=== PATIENT | male | born 1960 | race Caucasian/White ===

== ENCOUNTER → 2024-08-28 13:09 | Outpatient (REF) | payer OTHER, SELFPAY | LOC: HWRAD 13:09 | PROVIDERS: ATTENDING PHYSICIAN Family Medicine | DX: F17.210 Nicotine dependence, cigarettes, uncomplicated (principal) | CPT/HCPCS: 71271 ==

== ENCOUNTER 2024-12-29 05:18 | Inpatient (IN) | payer OTHER, SELFPAY ==
[2024-12-28 18:56] VITALS: BP 136/86
[2024-12-28 19:15] LABS: % Basophils 0.2 % (0-2); % Eosinophils 0.1 % (0-6); % Immature Granulocytes 0.5 % (0-0.5); % Lymphocytes 2.9 % (20.5-51.1); % Monocytes 3.6 % (1.7-9.3); % Neutrophils 92.7 % (42.2-75.2); Absolute Immature Granulocytes 0.1 10^3/uL (0-0.05); Absolute Lymphocytes 0.5 10^3/uL (1.2-3.4); Absolute Monocytes 0.6 10^3/uL (0.1-0.6); Absolute Neutrophils 15.4 10^3/uL (1.4-6.5); Hematocrit 44.6 % (39.0-52.0); Hemoglobin 15.3 g/dL (13.0-18.0); Mean Corp Hgb Conc. 34.3 g/dL (33.0-37.0); Mean Corpuscular Hgb 29.2 pg (27.0-31.0); Mean Corpuscular Volume 85.1 fL (80.0-94.0); Mean Platelet Volume 9.9 fL (7.4-10.4); Nucleated Red Blood Cells % 0 % (-); Platelet Count 190 10^3/uL (130-400); Red Blood Cell Count 5.24 10^6/uL (4.70-6.10); Red Cell Dist. Width 13.1 % (11.5-14.5); White Blood Cell Count 16.6 10^3/uL (4.8-10.8)
[2024-12-28 19:22] LABS: Lactic Acid 1.5 mmol/L (0.7-2.0)
[2024-12-28 19:29] LABS: ALT (SGPT) 31 U/L (0-50); AST (SGOT) 25 U/L (17-59); Albumin 4.4 g/dl (3.5-5.0); Alkaline Phosphatase 66 U/L (38-126); Blood Urea Nitrogen 15 mg/dl (9-20); Calcium 10.3 mg/dl (8.4-10.2); Carbon Dioxide 26 mmol/L (22-30); Chloride 103 mmol/L (98-107); Glucose 118 mg/dl (70-99); Lipase 44 U/L (23-300); Potassium 4.3 mmol/L (3.5-5.1); Sodium 139 mmol/L (135-145); Total Bilirubin 1.8 mg/dl (0.2-1.3); Total Protein 6.9 g/dl (6.3-8.2); eGFR > 60.00
[2024-12-28 20:56] VITALS: BP 123/83
[2024-12-28 20:57] VITALS: BP 123/83; BMI 19.5
[2024-12-28 21:26] LABS: Urine Albumin 1+ (Neg - Trace); Urine Bilirubin Negative (Negative); Urine Character Clear (Clear); Urine Color Yellow; Urine Glucose Negative (Negative); Urine Ketone 1+ (Negative); Urine Leukocyte Negative (Negative); Urine Nitrite Negative (Negative); Urine Occult Blood 4+ (Negative); Urine Specific Gravity 1.015 (<1.030); Urine Urobilinogen Negative (Neg - 1+)
--- NOTE | 2024-12-28 21:49 | ED.GENMED ---
History of Present Illness
<Mena Ferguson PA-C - Last Filed: 12/30/24 06:13>
General
Chief Complaint: Abdominal Pain
Source: patient
Exam Limitations: none
Time Seen by Provider: 12/28/24 21:25
Nursing documentation reviewed up to this point in time: agreed with
History of Present Illness
History of Present Illness:
pt is a 64 y/o M
h/o diverticulitis, no h/o abscess or surgery
here with lower abd pain that started 2 days ago, was initially LLQ but has moved to include lower abd and right lower abd
chills but no fever
dec appetite
10 days ago had 2 days of dark urine, looked like brownish and then red and cleared up after drinking fluids
no h/o kidney stones
no vomiting, diarrhea
lack of appetite today
motrin hours ago
Past History
<Mena Ferguson PA-C - Last Filed: 12/30/24 06:13>
Past History
ED Past Medical History: Other (diverticulitis)
ED Past Surgical History: None
Social History
Tobacco: Smoker
Alcohol: Occasional
Drug: None
Personal: Other ( )
Employment: Employed
Review of Systems
<Mena Ferguson PA-C - Last Filed: 12/30/24 06:13>
Review of Systems
Allergies reviewed?: Yes
All Other Systems: Not applicable
Phy Exam
<Mena Ferguson PA-C - Last Filed: 12/30/24 06:13>
Physical Exam
Physical Exam:
GENERAL: Alert , in no apparent distress
EYE: pupils equal and reactive
NECK: Supple
ENT: o/p clr, mmm.
CARDIAC: Regular rate and rhythm .
LUNGS: Clear breath sounds bilaterally, no acute respiratory distress, no wheezes/rales/rhonchi
ABDOMEN: Soft, moderate left lower quadrant tenderness, mild voluntary guarding, mild right lower quadrant tenderness, no cvat, normal bowel sounds
NEUROLOGICAL: Alert and oriented, no focal neuro deficits
SKIN: Warm and dry, skin intact.
MUSCULOSKELETAL: No edema, well perfused.
PSYCH: Normal and appropriate interaction.
Course
<Mena Ferguson PA-C - Last Filed: 12/30/24 06:13>
Orders/Labs/Results
Orders:
Orders
12/28/24 19:05
Complete Blood Count/With Diff Urgent
Comprehensive Metabolic Panel Urgent
Lactic Acid Urgent
Lipase Urgent
12/28/24 21:09
Urinalysis Reflex To Culture Urgent
Date Specimen was Collected: 12/28/24
Time Specimen was Collected: 21:04
Urine Microscopic Reflex Cult Urgent
12/28/24 21:45
Iohexol [Omnipaque] See Protocol PO NOW STA
12/28/24 21:49
0.9% Sodium Chloride 1000 ml [Nss] 1,000 ml IV BOLUS
HYDROmorphone [Dilaudid] 1 mg IV NOW STA
12/28/24 23:04
HYDROmorphone [Dilaudid] 1 mg IV NOW STA
12/29/24
CT Abd/pel W Iv And Oral Contr Urgent
Reason For Exam: lower abd pain, tender, h/o divertic
12/29/24 01:16
Ketorolac [Toradol] 30 mg IV NOW STA
12/29/24 01:19
0.9% Sodium Chloride 1000 ml [Nss] 1,000 ml IV BOLUS
Piperacillin/Tazo 4.5 Gram [Zosyn] 4.5 gram in 100 ml IV NOW
12/29/24 01:35
Type+Screen Urgent
12/29/24 01:54
ColoRectal Surgery Consult Urgent
Consulting Provider: Husam Bertrand
Was physician already notified: Yes
12/29/24 02:45
ABO2 Urgent
BBK Wristband Number:
Associate notified that ABO2 has been ordered: [id number]
Date: 12/29/24
Time: 01:55
Water Plumber ID: [id number]
12/29/24 02:59
HYDROmorphone [Dilaudid] 1 mg IV NOW STA
12/29/24 03:00
HYDROmorphone [Dilaudid] 1 mg .ROUTE .STK-MED ONE
12/29/24 04:49
0.9% Sodium Chloride 1000 ml [Nss] 1,000 ml IV BOLUS
HYDROmorphone [Dilaudid] 1 mg IV NOW STA
12/29/24 05:06
Admit/Transfer Patient As Directed
Co-Sign Provider:
Level of Care: Inpatient admission
Assign to:: IMU- Intermediate Care
Physician / Group: Hiram
Diagnosis: Acute Perforated Diverticulitis
Reason for Hospitalization: Acute Perforated Diverticulitis
Expected length of stay greater than two midnights?: Yes
ELOS- Estimated Length of Stay in days: 4
I certify the patient meets the requirements for IP care: Yes
Code Status As Directed
Resuscitation Status: Full Code
PRN Pain Medication Management As Directed
May give lesser potent ordered pain med per pt: Yes
preference::
Protocol:: Medication orders for pain may be administered in a
manner that supports deferring to patient preference
when the pt is:
- Requesting an ordered lesser potent pain medication.
Least to most potent pain medications are defined
as: acetaminophen < NSAID < tramadol < opioids
(morphine, oxycodone, hydromorphone).
- Requesting a lesser dose of the same medication IF
ORDERED.
- Requesting a less intrusive route of administration
if both routes are prescribed by the provider (PO <
IV).
12/29/24 Breakfast
NPO
Allow oral meds: Yes
Allow clear liquids: Sips of Clears
Flush (0.9% Sodium Chloride) [Flush (Nss)] See Dose Instructions IV PER PROTOCOL
12/29/24 06:36
0.9% Sodium Chloride 1000 ml [Nss] 1,000 ml IV 125 mls/hr
Acetaminophen [Tylenol] 650 mg PO Q4HPRN PRN
HYDROmorphone [Dilaudid] 0.5 mg IV Q4HPRN PRN
Ondansetron Injectable [Zofran] 4 mg IV Q6HPRN PRN
12/29/24 06:36
Activity As Directed
Activity Level: Ambulate
With Assistance
Bladder Scan As Directed
Follow Bladder Retention/Intermittent Cath Algorithm?: Yes
PRN if no void in __ hours: 6
Frequency: Per Retention Algorithm
If Bladder Scan Result >: 400
then:: Straight cath
I/O [Intake/ Output] As Directed
Frequency: Per unit guidelines
Pneumatic Compression Sleeves As Directed
Type: Knee high
Straight Cath As Directed
Frequency: Per Retention Algorithm
Additional Instructions: straight cath as needed per acute urinary retention algorithm for 24 hrs
Additional Instructions: for bladder scan greater than 400 mL
Vital Signs As Directed
Frequency: Per unit guidelines
Oxygen Therapy [O2 Therapy] [RESP] Routine
Titrate/Wean O2 to maintain O2 sat greater than (%): 94
DX Deep Vein Thrombosis Video Routine
12/29/24 08:00
Piperacillin/Tazo 3.375 Gram [Zosyn] 3.375 gram in 50 ml IV Q6H
12/30/24 03:30
Basic Metabolic Panel IN AM
Abnormal Lab Results
12/28/24 12/28/24
19:05 21:09
WBC 16.6 H 10^3/uL
(4.8-10.8)
Abs Immat Gran (auto) 0.1 H 10^3/uL
(0-0.05)
Absolute Neuts (auto) 15.4 H 10^3/uL
(1.4-6.5)
Absolute Lymphs (auto) 0.5 L 10^3/uL
(1.2-3.4)
Neutrophils % 92.7 H %
(42.2-75.2)
Lymphocytes % 2.9 L %
(20.5-51.1)
Glucose 118 H mg/dl
(70-99)
Calcium 10.3 H mg/dl
(8.4-10.2)
Total Bilirubin 1.8 H mg/dl
(0.2-1.3)
Urine Ketones 1+ A
(Negative)
Ur Occult Blood Reflex 4+ A
(Negative)
Urine RBC >100 A /HPF
(0-2)
Urine Bacteria (Reflex) Few A
(Negative)
Urine Albumin (Reflex) 1+ A
(Neg - Trace)
12/28/24 19:05
12/28/24 19:05
Vital Signs
Initial and Last Documented VS:
Initial Vital Signs
Temp Pulse Resp BP Pulse Ox
36.6 C 97 20 136/86 98
12/28/24 18:56 12/28/24 18:56 12/28/24 18:56 12/28/24 18:56 12/28/24 18:56
Last Documented Vital Signs
Temp Pulse Resp BP Pulse Ox
36.9 C 70 14 116/77 94
12/30/24 02:36 12/30/24 04:00 12/30/24 04:00 12/30/24 04:00 12/30/24 01:36
Harrylt;ANGELA Mcclure Last Filed: 12/29/24 03:01>
Orders/Labs/Results
Orders:
Orders
12/28/24 19:05
Complete Blood Count/With Diff Urgent
Comprehensive Metabolic Panel Urgent
Lactic Acid Urgent
Lipase Urgent
12/28/24 21:09
Urinalysis Reflex To Culture Urgent
Date Specimen was Collected: 12/28/24
Time Specimen was Collected: 21:04
Urine Microscopic Reflex Cult Urgent
12/28/24 21:45
Iohexol [Omnipaque] See Protocol PO NOW STA
12/28/24 21:49
0.9% Sodium Chloride 1000 ml [Nss] 1,000 ml IV BOLUS
HYDROmorphone [Dilaudid] 1 mg IV NOW STA
12/28/24 23:04
HYDROmorphone [Dilaudid] 1 mg IV NOW STA
12/29/24
CT Abd/pel W Iv And Oral Contr Urgent
Reason For Exam: lower abd pain, tender, h/o divertic
12/29/24 01:16
Ketorolac [Toradol] 30 mg IV NOW STA
12/29/24 01:19
0.9% Sodium Chloride 1000 ml [Nss] 1,000 ml IV BOLUS
Piperacillin/Tazo 4.5 Gram [Zosyn] 4.5 gram in 100 ml IV NOW
12/29/24 01:35
Type+Screen Urgent
12/29/24 01:54
ColoRectal Surgery Consult Urgent
Consulting Provider: Husam Bertrand
Was physician already notified: Yes
12/29/24 02:45
ABO2 Urgent
BBK Wristband Number:
Associate notified that ABO2 has been ordered: [id number]
Date: 12/29/24
Time: 01:55
Water Plumber ID: [id number]
12/29/24 02:59
HYDROmorphone [Dilaudid] 1 mg IV NOW STA
12/29/24 03:00
HYDROmorphone [Dilaudid] 1 mg .ROUTE .STK-MED ONE
12/29/24 04:49
0.9% Sodium Chloride 1000 ml [Nss] 1,000 ml IV BOLUS
HYDROmorphone [Dilaudid] 1 mg IV NOW STA
12/29/24 05:06
Admit/Transfer Patient As Directed
Co-Sign Provider:
Level of Care: Inpatient admission
Assign to:: IMU- Intermediate Care
Physician / Group: Hiram
Diagnosis: Acute Perforated Diverticulitis
Reason for Hospitalization: Acute Perforated Diverticulitis
Expected length of stay greater than two midnights?: Yes
ELOS- Estimated Length of Stay in days: 4
I certify the patient meets the requirements for IP care: Yes
Code Status As Directed
Resuscitation Status: Full Code
PRN Pain Medication Management As Directed
May give lesser potent ordered pain med per pt: Yes
preference::
Protocol:: Medication orders for pain may be administered in a
manner that supports deferring to patient preference
when the pt is:
- Requesting an ordered lesser potent pain medication.
Least to most potent pain medications are defined
as: acetaminophen < NSAID < tramadol < opioids
(morphine, oxycodone, hydromorphone).
- Requesting a lesser dose of the same medication IF
ORDERED.
- Requesting a less intrusive route of administration
if both routes are prescribed by the provider (PO <
IV).
12/29/24 Breakfast
NPO
Allow oral meds: Yes
Allow clear liquids: Sips of Clears
Flush (0.9% Sodium Chloride) [Flush (Nss)] See Dose Instructions IV PER PROTOCOL
12/29/24 06:36
0.9% Sodium Chloride 1000 ml [Nss] 1,000 ml IV 125 mls/hr
Acetaminophen [Tylenol] 650 mg PO Q4HPRN PRN
HYDROmorphone [Dilaudid] 0.5 mg IV Q4HPRN PRN
Ondansetron Injectable [Zofran] 4 mg IV Q6HPRN PRN
12/29/24 06:36
Activity As Directed
Activity Level: Ambulate
With Assistance
Bladder Scan As Directed
Follow Bladder Retention/Intermittent Cath Algorithm?: Yes
PRN if no void in __ hours: 6
Frequency: Per Retention Algorithm
If Bladder Scan Result >: 400
then:: Straight cath
I/O [Intake/ Output] As Directed
Frequency: Per unit guidelines
Pneumatic Compression Sleeves As Directed
Type: Knee high
Straight Cath As Directed
Frequency: Per Retention Algorithm
Additional Instructions: straight cath as needed per acute urinary retention algorithm for 24 hrs
Additional Instructions: for bladder scan greater than 400 mL
Vital Signs As Directed
Frequency: Per unit guidelines
Oxygen Therapy [O2 Therapy] [RESP] Routine
Titrate/Wean O2 to maintain O2 sat greater than (%): 94
DX Deep Vein Thrombosis Video Routine
12/29/24 08:00
Piperacillin/Tazo 3.375 Gram [Zosyn] 3.375 gram in 50 ml IV Q6H
12/30/24 03:30
Basic Metabolic Panel IN AM
Abnormal Lab Results
12/28/24 12/28/24
19:05 21:09
WBC 16.6 H 10^3/uL
(4.8-10.8)
Abs Immat Gran (auto) 0.1 H 10^3/uL
(0-0.05)
Absolute Neuts (auto) 15.4 H 10^3/uL
(1.4-6.5)
Absolute Lymphs (auto) 0.5 L 10^3/uL
(1.2-3.4)
Neutrophils % 92.7 H %
(42.2-75.2)
Lymphocytes % 2.9 L %
(20.5-51.1)
Glucose 118 H mg/dl
(70-99)
Calcium 10.3 H mg/dl
(8.4-10.2)
Total Bilirubin 1.8 H mg/dl
(0.2-1.3)
Urine Ketones 1+ A
(Negative)
Ur Occult Blood Reflex 4+ A
(Negative)
Urine RBC >100 A /HPF
(0-2)
Urine Bacteria (Reflex) Few A
(Negative)
Urine Albumin (Reflex) 1+ A
(Neg - Trace)
12/28/24 19:05
12/28/24 19:05
Vital Signs
Initial and Last Documented VS:
Initial Vital Signs
Temp Pulse Resp BP Pulse Ox
36.6 C 97 20 136/86 98
12/28/24 18:56 12/28/24 18:56 12/28/24 18:56 12/28/24 18:56 12/28/24 18:56
Last Documented Vital Signs
Temp Pulse Resp BP Pulse Ox
36.9 C 70 14 116/77 94
12/30/24 02:36 12/30/24 04:00 12/30/24 04:00 12/30/24 04:00 12/30/24 01:36
<Darnell Haile, DO - Last Filed: 12/29/24 05:15>
Orders/Labs/Results
Orders:
Orders
12/28/24 19:05
Complete Blood Count/With Diff Urgent
Comprehensive Metabolic Panel Urgent
Lactic Acid Urgent
Lipase Urgent
12/28/24 21:09
Urinalysis Reflex To Culture Urgent
Date Specimen was Collected: 12/28/24
Time Specimen was Collected: 21:04
Urine Microscopic Reflex Cult Urgent
12/28/24 21:45
Iohexol [Omnipaque] See Protocol PO NOW STA
12/28/24 21:49
0.9% Sodium Chloride 1000 ml [Nss] 1,000 ml IV BOLUS
HYDROmorphone [Dilaudid] 1 mg IV NOW STA
12/28/24 23:04
HYDROmorphone [Dilaudid] 1 mg IV NOW STA
12/29/24
CT Abd/pel W Iv And Oral Contr Urgent
Reason For Exam: lower abd pain, tender, h/o divertic
12/29/24 01:16
Ketorolac [Toradol] 30 mg IV NOW STA
12/29/24 01:19
0.9% Sodium Chloride 1000 ml [Nss] 1,000 ml IV BOLUS
Piperacillin/Tazo 4.5 Gram [Zosyn] 4.5 gram in 100 ml IV NOW
12/29/24 01:35
Type+Screen Urgent
12/29/24 01:54
ColoRectal Surgery Consult Urgent
Consulting Provider: Husam Bertrand
Was physician already notified: Yes
12/29/24 02:45
ABO2 Urgent
BBK Wristband Number:
Associate notified that ABO2 has been ordered: [id number]
Date: 12/29/24
Time: 01:55
Water Plumber ID: [id number]
12/29/24 02:59
HYDROmorphone [Dilaudid] 1 mg IV NOW STA
12/29/24 03:00
HYDROmorphone [Dilaudid] 1 mg .ROUTE .STK-MED ONE
12/29/24 04:49
0.9% Sodium Chloride 1000 ml [Nss] 1,000 ml IV BOLUS
HYDROmorphone [Dilaudid] 1 mg IV NOW STA
12/29/24 05:06
Admit/Transfer Patient As Directed
Co-Sign Provider:
Level of Care: Inpatient admission
Assign to:: IMU- Intermediate Care
Physician / Group: Hiram
Diagnosis: Acute Perforated Diverticulitis
Reason for Hospitalization: Acute Perforated Diverticulitis
Expected length of stay greater than two midnights?: Yes
ELOS- Estimated Length of Stay in days: 4
I certify the patient meets the requirements for IP care: Yes
Code Status As Directed
Resuscitation Status: Full Code
PRN Pain Medication Management As Directed
May give lesser potent ordered pain med per pt: Yes
preference::
Protocol:: Medication orders for pain may be administered in a
manner that supports deferring to patient preference
when the pt is:
- Requesting an ordered lesser potent pain medication.
Least to most potent pain medications are defined
as: acetaminophen < NSAID < tramadol < opioids
(morphine, oxycodone, hydromorphone).
- Requesting a lesser dose of the same medication IF
ORDERED.
- Requesting a less intrusive route of administration
if both routes are prescribed by the provider (PO <
IV).
12/29/24 Breakfast
NPO
Allow oral meds: Yes
Allow clear liquids: Sips of Clears
Flush (0.9% Sodium Chloride) [Flush (Nss)] See Dose Instructions IV PER PROTOCOL
12/29/24 06:36
0.9% Sodium Chloride 1000 ml [Nss] 1,000 ml IV 125 mls/hr
Acetaminophen [Tylenol] 650 mg PO Q4HPRN PRN
HYDROmorphone [Dilaudid] 0.5 mg IV Q4HPRN PRN
Ondansetron Injectable [Zofran] 4 mg IV Q6HPRN PRN
12/29/24 06:36
Activity As Directed
Activity Level: Ambulate
With Assistance
Bladder Scan As Directed
Follow Bladder Retention/Intermittent Cath Algorithm?: Yes
PRN if no void in __ hours: 6
Frequency: Per Retention Algorithm
If Bladder Scan Result >: 400
then:: Straight cath
I/O [Intake/ Output] As Directed
Frequency: Per unit guidelines
Pneumatic Compression Sleeves As Directed
Type: Knee high
Straight Cath As Directed
Frequency: Per Retention Algorithm
Additional Instructions: straight cath as needed per acute urinary retention algorithm for 24 hrs
Additional Instructions: for bladder scan greater than 400 mL
Vital Signs As Directed
Frequency: Per unit guidelines
Oxygen Therapy [O2 Therapy] [RESP] Routine
Titrate/Wean O2 to maintain O2 sat greater than (%): 94
DX Deep Vein Thrombosis Video Routine
12/29/24 08:00
Piperacillin/Tazo 3.375 Gram [Zosyn] 3.375 gram in 50 ml IV Q6H
12/30/24 03:30
Basic Metabolic Panel IN AM
Abnormal Lab Results
12/28/24 12/28/24
19:05 21:09
WBC 16.6 H 10^3/uL
(4.8-10.8)
Abs Immat Gran (auto) 0.1 H 10^3/uL
(0-0.05)
Absolute Neuts (auto) 15.4 H 10^3/uL
(1.4-6.5)
Absolute Lymphs (auto) 0.5 L 10^3/uL
(1.2-3.4)
Neutrophils % 92.7 H %
(42.2-75.2)
Lymphocytes % 2.9 L %
(20.5-51.1)
Glucose 118 H mg/dl
(70-99)
Calcium 10.3 H mg/dl
(8.4-10.2)
Total Bilirubin 1.8 H mg/dl
(0.2-1.3)
Urine Ketones 1+ A
(Negative)
Ur Occult Blood Reflex 4+ A
(Negative)
Urine RBC >100 A /HPF
(0-2)
Urine Bacteria (Reflex) Few A
(Negative)
Urine Albumin (Reflex) 1+ A
(Neg - Trace)
12/28/24 19:05
12/28/24 19:05
Vital Signs
Initial and Last Documented VS:
Initial Vital Signs
Temp Pulse Resp BP Pulse Ox
36.6 C 97 20 136/86 98
12/28/24 18:56 12/28/24 18:56 12/28/24 18:56 12/28/24 18:56 12/28/24 18:56
Last Documented Vital Signs
Temp Pulse Resp BP Pulse Ox
36.9 C 70 14 116/77 94
12/30/24 02:36 12/30/24 04:00 12/30/24 04:00 12/30/24 04:00 12/30/24 01:36
<Mena Ferguson PA-C - Last Filed: 12/30/24 06:13>
MDM/Problems Addressed
Differential Diagnosis Includes:
diverticulitis, abscess, kidney stone, pyelonephritis
MDM/Problems Addressed:
64 y/o M
h/o diverticuliits with abscess (ct guided drainage 2010)
here with lower abd pain, LLQ to RLQ x 2 days, low grade temp, chills
no vomiting, diarrhea ,bloody stool
had some gross painless hematuria 10 days ago lasting 2 days, resolved; no h/o
no rectal pain, pressure
no h/o prostatitis
tender LLQ mostly with some guarding on exam
nontoxic appaering
temp 99.2
wbc 16 with left shift
appreciate UA with microscopic hematuria
ct a/p pending
iv pain meds
if complicated divertic, will admit
if pain not controlled, admit
if pt feels better and uncomplicated, recommend discharge with outpatient F/U regarding hematuria
signed out to Danna MILLER pending ct.
<Darnell Haile DO - Last Filed: 12/29/24 05:15>
*Critical Care Note
Total Time (30-74mins, 75-104mins- exclusive of procedures): 20
<Danna Zimmerman PA-C - Last Filed: 12/29/24 03:01>
Update Note
Update Note:
1:17 AM:
Danna MILLER
Received patient in signout.
On exam, patient is well-appearing in no acute distress but does complain of persistent pain and he states that the Dilaudid has not been helping much. Received call from [facility] radiology notify me that there is moderate amount of free air on CAT
scan concerning for perforated diverticulitis. Will notify colorectal and hospitalist. Zosyn and IV fluids started. ED attending made aware.
ED Attending Note
<Mena Ferguson PA-C - Last Filed: 12/30/24 06:13>
-
Portions of this chart may have been created with voice recognition software.� Occasional wrong word or��sound alike� substitutions may have occurred due to the inherent limitations of voice recognition software.
<Darnell Haile DO - Last Filed: 12/29/24 05:15>
ED Attending Note
Patient seen and examined by attending physician: Yes
I performed the substantive portion of visit, reviewed & personally made and approve the management plan that is documented in note by myself or MELVIN.: Yes
ED Attending Note:
Seen with MELVIN examined independently history of diverticulitis for many years never requiring surgery, few days of pain in his lower abdomen left greater than right fairly severe with hematuria, here is distended has guarding in the left lower
abdomen CT noted labs noted [facility] for hernia repair, saw Dr. Álvarez when he had a small contained abscess treated conservatively
Patient and updated, message sent to colorectal surgery
Clinical suspicion is perforated diverticulitis will require surgical repair urgently this morning
Discharge Plan
Departure
Patient Disposition: Admit
Date of Disposition: 12/29/24
Time of Disposition: 01:38
Admit to: Med/Surg
Presentation/result/management discussed w/ accepting MD/DO: Hospitalist
Patient with high blood pressure during this ER visit?: Yes
Condition: Fair
Discharge Problem:
Perforation of intestine due to diverticulitis of gastrointestinal tract
Interventions
Interventions:
*Risk Screen - Suicide Last Done: 12/28/24 20:57
*General Assessment Last Done: 12/28/24 18:56
*Neglect/Abuse Screening Last Done: 12/28/24 20:57
*ED- Fall Risk Assessment Last Done: 12/28/24 20:57
*ED COVID-19 Vaccine History Last Done: 12/28/24 20:57
*Nursing Disposition Last Done: 12/29/24 18:04
RG-Kdrqzy-Wjjoftkvpt Assessment Last Done: 12/29/24 07:24
Discharge Date and Time
Discharge Date/Time: 12/29/24 18:06
[2024-12-28] MEDS: NSS 1000 IV (21:59)
[2024-12-28] MEDS: OMNIPAQUE 50 ML PO (22:01)
[2024-12-28] MEDS: DILAUDID 1 MG IV ×2 (22:01→23:22)
[2024-12-28 22:19] LABS: Urine Bacteria Few (Negative); Urine Red Blood Cell >100 /HPF (0-2); Urine Squamous Cell 0-2 /LPF (Few); Urine White Cell 0-2 /HPF (0-5)
[2024-12-28 23:23] VITALS: BP 118/81
--- NOTE | 2024-12-28 23:26 | EDRN ---
Patient stating that his pain is coming back informed MERY Conrad taking care of him, meds ordered and given, patient completed his oral contrast
[2024-12-29] VITALS (18 sets, daily range): BP systolic 116–148; BP diastolic 76–94; BMI 19.4
[2024-12-29] MEDS: NSS 1000 IV ×5 (01:34→23:44)
[2024-12-29] MEDS: ZOSYN 100 IV (01:38)
[2024-12-29] MEDS: TORADOL 30 MG IV (01:38)
[2024-12-29] MEDS: DILAUDID 1 MG IV ×5 (03:10→15:15)
--- NOTE | 2024-12-29 03:19 | EDRN ---
Patient asked about more pain meds, patient medicated as ordered, sat bed up some for better comfort, he also asked about ice chips,informed him they don't want him having anything by mouth at this time, call saucedo in reach.
--- NOTE | 2024-12-29 05:08 | HPS.HSE ---
Family Physician
-
Family Physician: Ray Pham
Chief Complaint
-
Abd Pain
History of Present Illness
Patient is a 64y M with PMH significant for diverticular disease who presents to ED complaining of abdominal pain x 2 days. Patient states that he developed abdominal pain on Saturday. Pain was similar to his usual diverticulitis pain. His
symptoms worsened over the past two days and this evening he presented to the ED for further evaluation. He states that prior episodes have never been this severe. No fevers / chills. No N/V/D.
Medical History
Past Medical History
Past Medical History: Reports Other
Additional Past Medical History:
Diverticular Disease
Anxiety / Insomnia
Peripheral Polyneuropathy
Pulmonary Nodules
AAA
Past Surgical History: Reports Other
Additional Past Surgical History:
Lipoma Excision
Left Inguinal Hernia Repair
Percutaneous Drain for Diverticular Abscess (2010)
Social History
Tobacco: Smoker (Current some day smoker. Approx 30 pack years total use.)
Alcohol: None
Drug: None
Family History
Family History: Other (Father: Lung Cancer Mother: Breast Cancer)
Allergies / Home Medications
Allergies reflects when Allergies were last updated in [facility].
Home Medications with original date entered in [facility]
Allergy/Medication List:
Allergies
Allergy/AdvReac Type Severity Reaction Status Date / Time
No Known Allergies Allergy Verified 12/28/24 18:55
Home Medications
Calcium,Magnesium,Zinc 1 tab PO DAILY 09/12/10
lorazepam 1 mg tablet 1 mg PO TID 09/12/10
omega-3 fatty acids-fish oil 340 mg-1,000 mg capsule (Fish Oil) 1 cap PO DAILY 09/12/10
simvastatin 20 mg tablet 40 mg PO DAILY 06/10/20
zaleplon 10 mg capsule 10 mg PO HS PRN sleep 12/29/24
Review of Systems
-
History Source: Patient
A 12 point ROS was completed and negative except as noted: Yes
Constitutional: Denies Fever or Chills
Respiratory: Denies Cough or Trouble Breathing
Cardiac: Denies Chest Pain or Palpitations
Abdomen/GI: Reports Abdominal Pain; Denies Nausea, Vomiting or Diarrhea
: Denies Dysuria or Frequency
Musculoskeletal: Denies Joint Pain or Edema
Neurological: Denies Dizzy or Headache
Physical Exam
Vital Signs
Vital Signs
Temp Pulse Resp BP Pulse Ox
98.2 F 74 20 130/89 99
12/29/24 03:20 12/28/24 20:57 12/28/24 18:56 12/29/24 03:11 12/29/24 03:15
Physical Exam
General: Other (64y M in mild distress due to abdominal pain.)
HEENT: Moist mucous membranes and PERRLA
Respiratory: Clear; No Wheezes, Rales or Rhonchi
Cardiac: S1/S2 and Regular Rhythm; No Murmur
GI: Other (Abdomen is softly distended. Pos tenderness LLQ / lower abdomen. Pos bowel sounds. Pos guarding.)
Musculoskeletal: No Clubbing, No Cyanosis and No Edema
Neuro: AO x 3
Laboratory Results
-
12/28/24 19:05
12/28/24 19:05
Laboratory Results
Lactic Acid 1.5 mmol/L (0.7-2.0) 12/28/24 19:05
Total Bilirubin 1.8 mg/dl (0.2-1.3) H 12/28/24 19:05
AST 25 U/L (17-59) 12/28/24 19:05
ALT 31 U/L (0-50) 12/28/24 19:05
Alkaline Phosphatase 66 U/L (38-126) 12/28/24 19:05
Lipase 44 U/L (23-300) 12/28/24 19:05
Impression/Plan
-
A/P: Patient is a 64y M with PMH significant for diverticular disease who presents to ED complaining of abdominal pain.
Acute Perforated Diverticulitis
- Admit for further evaluation and treatment.
- CT scan shows free air in the abdomen - most likely from perf diverticulitis given history, LLQ pain, etc.
- IV Zosyn.
- IVFs, pain control, supportive care.
- Colorectal Surgery notified and will be in to see patient - will likely require urgent OR for perforated viscus.
- Follow for clinical changes.
DVT Prophylaxis: SCDs
Code Status: Full
--- NOTE | 2024-12-29 05:10 | EDRN ---
Patient asking about pain medicine, he was medicated per order, Dr. Gandhi also in to see patient to work on admission orders.
[2024-12-29] MEDS: DILAUDID 0.5 MG IV (07:17)
[2024-12-29] MEDS: ZOSYN 50 IV ×2 (08:03→15:58)
[2024-12-29 09:23] LABS: PT 17.4 Sec (11.4-14.6)
[2024-12-29 09:24] LABS: APTT 32.5 Sec (23.4-35.0)
--- NOTE | 2024-12-29 10:33 | CON.CRS ---
Consultation
-
Date/Time Consultation Performed: 12/29/24 6:00am
Performing Provider: Husam Bertrand MD
Medical History
-
History of Present Illness:
Patient is a 64-year-old male with PMH of HLD, AAA (currently under evaluation by vascular), and recurrent diverticulitis (first episode in 2010 requiring IR drain; since then 3 flares requiring p.o. antibiotics without hospitalization) who presents
for significant abdominal pain for the last 3 days. The pain seemed more significant on the right side this time and his diverticular pain is usually on the left. However he does have pain diffusely. He denies any N/V, chest pain, shortness of
breath, constipation, diarrhea, hematochezia or urinary symptoms. He does note some fevers/chills. In the ED, his WBC was 16.[address] scan showed moderate pneumoperitoneum associated with diverticulitis. His last colonoscopy was 10/2022, which
showed diverticulosis in the transverse colon TA.
Past Medical History
Past Medical History: Other (As above)
Past Surgical History: Other (Left inguinal hernia repair, lipoma excision from left chest wall)
Social History
Tobacco: Smoker (Occasional smoker, prior 30-year history)
Alcohol: None
Drug: Marijuana
Personal: Single (Has girlfriend, Michaela)
Family History
Family History: Other (Denies any CRC)
Allergies / Home Medications
Allergy/AdvReac Type Severity Reaction Status Date / Time
No Known Allergies Allergy Verified 12/28/24 18:55
�Medication �Instructions �Recorded �Confirmed �Type
riqvoce-pxnohgbcq-uixf 333 mg-133 1 tab PO DAILY 09/12/10 12/29/24 History
mg-5 mg tablet
lorazepam 1 mg tablet 1 mg PO TID 09/12/10 12/29/24 History
omega-3 fatty acids-fish oil 340 1 cap PO DAILY 09/12/10 12/29/24 History
mg-1,000 mg capsule (Fish Oil)
aspirin 81 mg tablet,delayed 81 mg PO DAILY 12/29/24 12/29/24 History
release
calcium carbonate 550 mg-magnesium 2 tab PO DAILYPRN PRN stomach 12/29/24 12/29/24 History
hydroxide 110 mg chewable tablet issuses
simethicone 80 mg chewable tablet 160 mg PO DAILYPRN PRN gas pains 12/29/24 12/29/24 History
simvastatin 40 mg tablet (Zocor) 40 mg PO DAILY 12/29/24 12/29/24 History
therapeutic multivitamin 1 tab PO DAILY 12/29/24 12/29/24 History
varenicline tartrate 0.5 mg (11)-1 0 ea PO PER PKG DIR 12/29/24 12/29/24 History
mg (42) tablets in a dose pack
zaleplon 10 mg capsule 10 mg PO HSPRN PRN sleep 12/29/24 12/29/24 History
Review of Systems
-
A 10 point review of systems was completed, and was negative except as per HPI.
Physical Exam
Vital Signs
Temp 98.2 F 12/29/24 03:20
Pulse 93 12/29/24 08:45
Resp Rate 16 12/29/24 07:22
Blood pressure 130/94 12/29/24 08:00
SaO2 99 12/29/24 06:30
12/28/24 12/29/24 12/30/24
06:59 06:59 06:59
Actual Weight 69 kg
Body Mass Index (BMI) 19.5
Lab Results / Allergies
12/28/24 19:05
12/28/24 19:05
WBC 16.6 10^3/uL (4.8-10.8) H 12/28/24 19:05
Hgb 15.3 g/dL (13.0-18.0) 12/28/24 19:05
Hct 44.6 % (39.0-52.0) 12/28/24 19:05
Plt Count 190 10^3/uL (130-400) 12/28/24 19:05
Abs Immat Gran (auto) 0.1 10^3/uL (0-0.05) H 12/28/24 19:05
Neutrophils % 92.7 % (42.2-75.2) H 12/28/24 19:05
Allergy/AdvReac Type Severity Reaction Status Date / Time
No Known Allergies Allergy Verified 12/28/24 18:55
Physical Exam
General: Well Developed, Well Nourished and No Apparent Distress
HEENT: Normocephalic and Atraumatic
Respiratory: Non Labored Respirations
GI: Soft, Tender (Diffusely tender, moderate to severely tender in the lower abdomen, involuntary guarding, no rebound) and Distended (Mildly distended)
Skin: Warm and Dry
Neuro: AO x 3
Data Reviewed
-
CT Scan: Image Personally Visualized and interpreted and Discussed with Patient
Labs: Labs Reviewed by me and Discussed with Patient
Assessment / Plan
-
64-year-old male with PMH of HLD, AAA (currently under evaluation by vascular), and recurrent diverticulitis (first episode in 2010 requiring IR drain; since then 3 flares requiring p.o. antibiotics without hospitalization) who presents for
significant abdominal pain for the last 3 days, WBC 16.[address] scan showed moderate pneumoperitoneum associated with diverticulitis. Last colonoscopy 10/2022 showing diverticulosis and transverse colon TA.
� Perforated diverticulitis with moderate free air, hemodynamically stable
�Reviewed the pathophysiology and treatment for diverticulitis; explained nonoperative management versus surgical treatment; in light of the free perforation and moderate amount of pneumoperitoneum associated with involuntary guarding, I am
concerned that he will not improve with nonoperative measures alone and recommend surgery; I explained surgery, including but not limited to, the need for open incision, ostomy creation, risks associated with colostomy and risks associated with
anastomosis; I explained the risks of nonoperative measures including but not limited to, clinical worsening and development of sepsis; patient understood well and was agreeable to surgery; he indicated he would like to avoid a colostomy, but I
explained that it is very likely and will not be known until the time of surgery; he understood and was agreeable
�Keep n.p.o. with IVF
�Agree with IV Zosyn
�Pain control with Toradol and Dilaudid as needed
� Will give preoperative dose of subQ heparin and then hold DVT PPx until tomorrow if Hb stable
� Will obtain ostomy marking
� Appreciate hospitalist
--- NOTE | 2024-12-29 10:50 | CM ---
Addendum entered by Gloria Gomez 12/29/24 11:12:
Reported no financial insecurity but accepted offer for [employer] resource information
Original Note:
Met with patient at bedside in the ED
Pharmacy verified: [facility] @ [address] [place] [address]
Primary contact is SonIsaiah; phone # [phone]
Lives in a multilevel home with significant other, Lorraine # [phone]; 4 steps to enter via backdoor; 22 steps to 2nd floor bed and bathroom; railings on stairs; bath has stall shower
PLOF: independent with ambulation, stairs, and ADLs
NO DME; No utilization history of SNF or Home Health; Son or Significant Other will transport home
Discharge plan to be determined pending hospital course/surgery; Case Management will monitor for needs/services when stable for discharge
--- NOTE | 2024-12-29 11:09 | WOUNDNOTE ---
TA RN NOTE: Stoma sited patient as requested, aware that surgeon has final decision. Avoided creases and scarring, identified rectus muscle and assessed lying, sitting and standing. LUQ marked 7cm from midline and 5.5cm proximal from umbilical
line. LLQ marked 7.5cm from midline and 2cm distal from umbilical line. RUQ marked 7cm from midline and 5.5cm proximal from umbilical line. RLQ marked 7cm from midline and 0cm distal from umbilical line. Answered all questions and will follow post
op as needed.
--- NOTE | 2024-12-29 12:07 | W.PN.UPDATE ---
Update Note
Progress Note Update
Non-billable addendum
admitted by Final Inspector Shuttle at 5 AM. Admitted with acute diverticulitis with perforation
seen in ER alongside CRS - plan for urgent ex-lap, ostomy creation
Assessment:
Acute Perforated Diverticulitis
- CT: Moderate to large volume free air in the mid to upper abdomen suggesting perforated viscus. In light of history of diverticulitis and current findings compatible with diverticulosis and likely diverticulitis of the sigmoid colon with adjacent
small bowel wall thickening, most likely etiology would be perforated sigmoid diverticulitis.
- CRS urgently consulted
- for OR today for urgent ex-lap, ostomy creation
- NPO/IVF
- IV Zosyn
- pain control
DVT ppx: SCDs
Code: Full
--- NOTE | 2024-12-29 22:47 | W.IMMPOSTOP ---
Surgical Immed Post Op Note
-
Primary Surgeon: Husam Bertrand MD
Assisting Surgeon: Jose Manuel Miller MD
Pre-op Diagnosis: Perforated diverticulitis
Post-op Diagnosis: Perforated diverticulitis
Procedure Performed: Ex lap, sigmoidectomy, abdominal washout, creation of end colostomy
Anesthesia Type: General
Specimen / Cultures: Sigmoid colon
Estimated Blood Loss: 50 mL
Complications: None
Operative Findings: Purulent ascites; small bowel not significantly dilated, 1 loop adjacent to sigmoid colon with fibrinous exudate; mid to distal sigmoid with inflammation and punctate perforation; stapled at the distal sigmoid and proximal
sigmoid with green load of the contour stapler; identified left ureter; washed abdomen with 5 L of warm saline; tag rectal stump with Prolene stitch at the right aspect of the staple line; placed Seprafilm and closed with 0 PDS, remedios with Telfa
maria d; matured ostomy in Sandra fashion at the LUQ ostomy marking site
--- NOTE | 2024-12-29 22:53 | OR.RPT ---
Operative Report
Operative Report
DATE OF OPERATION: 12/29/2024
SURGEON: Husam Bertrand MD
PREOPERATIVE DIAGNOSIS: Perforated diverticulitis
POSTOPERATIVE DIAGNOSIS: Perforated diverticulitis
OPERATION: Exploratory laparotomy, sigmoidectomy, abdominal washout, creation of end-colostomy; preoperative ultrasound-guided TAP block performed by anesthesia
ASSISTANTS:
1. Jose Manuel Miller MD
ANESTHESIA: General
ESTIMATED BLOOD LOSS: 50 mL
UOP: 325 mL
IVF: 1.8 liters
FINDINGS:
1. Punctate perforation seen on a diverticula in the distal sigmoid colon associated with inflammation, consistent with perforated diverticulitis
2. Purulent ascites encountered
3. Transected at the distal sigmoid and proximal sigmoid colon; created end colostomy in the LUQ marking site
SPECIMENS:
1. None
DRAINS: None
COMPLICATIONS: None
INDICATIONS: The patient is a 64-year-old male with PMH of diverticulitis requiring abscess drainage in 2010 who presented with 3 days of acute abdominal pain. On CT scan, he was found to have perforated diverticulitis with pneumoperitoneum.
Therefore, surgery was recommended. The operation was discussed with the patient in detail, including risks, benefits and alternatives. My plan is to explore the abdomen, identify the site of perforation and remove the segment of bowel, likely the
sigmoid colon. I will assess if primary anastomosis is reasonable or if an ostomy would be safer. I anticipate needing to create an ostomy to reduce the risk of post-operative complications. Risks described included, but are not limited to,
bleeding, infection, anastomotic leak or stenosis if anastomosis created, rectal stump dehiscence, ureteral injury, bowel or solid organ injury, recurrence of diverticulitis, risks associated with a stoma if created (i.e.- skin irritation, ischemia,
retraction, prolapse, need for revision surgery and parastomal hernia) and anesthetic risks. The patient understood and agreed to proceed.
PROCEDURE IN DETAIL: Pre-operatively, the patient was marked by our enterostomal nurses. The patient was taken to the operating room and placed on the operating table in supine position. Sequential compression devices were placed bilaterally.
General anesthesia was induced and the patient was intubated without complication. The patient was placed in lithotomy position with both arms secured to the armboards in extended position. Anesthesia performed an ultrasound-guided TAP block.
Mijares catheter was placed with sterile technique. The abdomen was shaved, prepped and draped in a sterile fashion. A time-out was performed verifying the correct patient, procedure, operative site, positioning, and special equipment. Anesthesia
placed a nasogastric tube. Preoperative antibiotics were given. A marking pen was used to joe out the midline.
Using a 15 blade scalpel, a midline incision was made from 2 cm above the umbilicus and extended caudally to 2 cm above the pubic symphysis. This was taken down to the level of the fascia with Bovie electrocautery and hemostasis was assured. The
linea alba was divided carefully with Bovie electrocautery. Two Kellys were used to grasp and elevate the peritoneum, which was sharply divided with Metzenbaum scissors, ensuring no peritoneal organs were in the vicinity. Upon entry, I encountered
a small amount of purulent ascites, which was suctioned. I extended the fascial incision to the length of the skin incision, taking care to avoid injury to the bladder. A large Pedrito wound protector was placed. The abdomen was explored. The small
bowel was not significantly dilated. Inflammation was noted in the distal to mid sigmoid colon. 1 loop of small bowel adjacent to this area had significant fibrinous exudate, but was otherwise healthy. There was a punctate perforation noted along
the medial aspect of the mid sigmoid colon at the tip of a diverticula. The patient was placed in Trendelenburg position with the left side tilted up. The small bowel was then swept out of the pelvis. With the sigmoid colon adequately exposed, I
began by mobilizing it in a lateral to medial fashion. I divided the white line of Toldt with Bovie electrocautery up to the mid-descending colon. I easily identified the left ureter. This was confirmed with the pinch technique and witnessing the
ureter vermiculate. I continued my dissection into the pelvis to just beyond the rectosigmoid junction. Along the left and anterior aspects of the pelvis, there were fairly thick adhesions that seemed chronic in nature. With a combination of sharp
and blunt meticulous dissection, these were taken down. The rectosigmoid was now completely mobilized and retracted from the pelvis. I selected my distal transection point to be just beyond the inflammation at the level of the distal sigmoid
colon. A window in the mesentery was created and a Contour cutting stapler with a green load was fired across here. I selected my proximal transection point on healthy colon just proximal to the inflammation at the level of the proximal sigmoid
colon. A window in the mesentery was created and the Contour cutting stapler with a green load was fired. The [employer] LigaSure was used to divide the mesentery, taking care to avoid the ureter and staying close to the mesenteric border. The
specimen was handed off and sent for pathology. The rectal stump was evaluated and there was some bleeding noted at the staple line, which was controlled with a 3-0 Vicryl in a [id number] fashion. A tagging stitch of 3-0 Prolene was placed in
the right aspect of the rectal stump staple line.
The abdomen was irrigated with 5 L of warm saline and suctioned. The small bowel was run from the ligament of Treves to the ligament of Treitz. The entire length of the small bowel appeared healthy without any injury or perforation noted. The NG
tube was palpated within the stomach and good position was confirmed. Due to the chronicity of the adhesions and purulent ascites, I elected to move forward with end-colostomy creation as opposed to a primary anastomosis. I checked the reach from
the proximal staple line to the left lower quadrant ostomy marking site. There was a little tension. Therefore, I mobilized the left colon and mesentery from the retroperitoneum up to the mid descending colon. The reach was checked once more and
was more than adequate. Using an Allis, I elevated the skin and created a circular incision with electrocautery. I coned out a small amount of subcutaneous tissue. Using [employer] and electrocautery, I took this down through the anterior and
posterior layers of the fascia, making a cruciate incision in each and splitting the rectus muscle with a Susan clamp. I ensured the colostomy tunnel was large enough by passing 2 fingers through easily. I brought the colon through the colostomy
tunnel, ensuring no twist to the mesentery. The mesentery was directed inferiorly. I once more examined the operative field, including the rectal stump, mesentery, and left retroperitoneum and hemostasis was assured.
The proximal staple line was wrapped with Seprafilm and pulled through the ostomy tunnel. Seprafilm was placed just below the midline incision. The midline fascia was closed with a running 0 PDS, starting at the corners and ending in the middle.
The skin was closed with widely-gapped remedios and Telfa maria d. A blue towel roll was placed over the midline incision. The left-sided colostomy was matured in a Brooked fashion with 3-0 Vicryl stitches, and a stoma appliance was placed. An
Aquacel was placed over the midline.
At this point, the procedure was complete. The patient was awoken and extubated without complication. All needle, sponge and instrument counts were reported as correct. The patient tolerated the procedure well and was transferred to the recovery
room in stable condition with nasogastric tube and Mijares in place.
Of note, Jose Manuel Miller MD, environmental services assistant, was necessary during this procedure for traction, countertraction, and exploratory purposes. I was present for the entire duration of the case.
DICTATED BY: Husam Bertrand MD
--- NOTE | 2024-12-29 23:17 | PTCARENOTE ---
NG tube placement is confirmed as per SERVICE OR WORK DISPATCHER CHIEF. pt transferred to his room IMU [id number]. pt is stable and vss. report given to Vivi Soler in IMU. pt denies any pain.
[2024-12-29] MEDS: ZOSYN IV (23:54)
[2024-12-30] VITALS (12 sets, daily range): BP systolic 116–139; BP diastolic 75–89; BMI 19.3
[2024-12-30] MEDS: DILAUDID 0.5 MG IV ×3 (00:05→22:06)
[2024-12-30] MEDS: ATIVAN 1 MG IV (01:06)
[2024-12-30] MEDS: DILAUDID 1 MG IV ×3 (01:06→10:11)
[2024-12-30] MEDS: NSS (PRESERVATIVE FREE) 0.5 ML IV (01:07)
[2024-12-30] MEDS: ZOSYN 50 IV ×4 (01:07→20:12)
[2024-12-30 03:52] LABS: % Basophils 0.2 % (0-2); % Immature Granulocytes 0.4 % (0-0.5); % Monocytes 2.7 % (1.7-9.3); % Neutrophils 94.7 % (42.2-75.2); Absolute Immature Granulocytes 0.1 10^3/uL (0-0.05); Absolute Lymphocytes 0.2 10^3/uL (1.2-3.4); Absolute Monocytes 0.3 10^3/uL (0.1-0.6); Absolute Neutrophils 11.4 10^3/uL (1.4-6.5); Hematocrit 36.1 % (39.0-52.0); Hemoglobin 12.2 g/dL (13.0-18.0); Mean Corp Hgb Conc. 33.8 g/dL (33.0-37.0); Mean Corpuscular Hgb 29.1 pg (27.0-31.0); Mean Corpuscular Volume 86.2 fL (80.0-94.0); Mean Platelet Volume 9.5 fL (7.4-10.4); Nucleated Red Blood Cells % 0 % (-); Platelet Count 161 10^3/uL (130-400); Red Blood Cell Count 4.19 10^6/uL (4.70-6.10); Red Cell Dist. Width 13.3 % (11.5-14.5); White Blood Cell Count 12.1 10^3/uL (4.8-10.8)
[2024-12-30 04:07] LABS: Blood Urea Nitrogen 19 mg/dl (9-20); Calcium 8.8 mg/dl (8.4-10.2); Carbon Dioxide 26 mmol/L (22-30); Chloride 107 mmol/L (98-107); Estimated Creatinine Clearance 83 ml/min; Glucose 131 mg/dl (70-99); Magnesium 2.1 mg/dl (1.6-2.3); Potassium 4.6 mmol/L (3.5-5.1); Sodium 138 mmol/L (135-145); eGFR > 60.00
--- NOTE | 2024-12-30 05:21 | PTCARENOTE ---
Received patient from the PACU around midnight. Patient with midline incision with minimal amount of shadowing that was circled by PACU nurse. LLQ colostomy with no output. No bowel sounds. NGT to right nare to low intermittent wall suction with 350
green output overnight. Patient requested home ativan. letterpress printing machinist provider made aware and ordered 1x IV dose. PRN ativan administered for pain.
--- NOTE | 2024-12-30 07:15 | PTCARENOTE ---
On walking rounds pt is AAAOx3, de guzman in place sanjuana urine, NGT in place int suction. NSS at 125. Pt states pain is under control at abot 3-4
[2024-12-30] MEDS: NSS 1000 IV ×3 (07:40→22:05)
--- NOTE | 2024-12-30 08:00 | W.PN.CRS1 ---
Today's Communication / Plan
-
as below
Assessment/Plan
-
64-year-old male with PMH of HLD, AAA (currently under evaluation by vascular), and recurrent diverticulitis (first episode in 2010 requiring IR drain; since then 3 flares requiring p.o. antibiotics without hospitalization) who presents for
significant abdominal pain for the last 3 days, WBC 16.[address] scan showed moderate pneumoperitoneum associated with diverticulitis. Last colonoscopy 10/2022 showing diverticulosis and transverse colon TA.
POD 1 sigmoidectomy with end-colostomy, U/S guided TAP block by anesthesia
AFVSS
WBC 12.1 from 16.6, Hb 12.2 from 15.3, CR 0.9, UOP 800 for 12 hours
�Will DC NGT, keep on sips/chips; okay for p.o. meds
� Pain control with Toradol, Dilaudid as needed; add Tylenol; continue Entereg
�Continue IVF, strict intake/output; DC Mijares
�Repeat CBC at noon; if Hb stable, will start DVT PPx
� Appreciate [facility]OC[facility] for ostomy education and supplies
� Encourage IS/OOB
� Appreciate hospitalist
Subjective Data
Subjective Data
Date of Service: December 30, 2024
No overnight events.
Pain controlled.
Denies nausea/vomiting. NG tube in place.
No ostomy function. Mijares
Objective Data
-
Vital Signs
Temp Pulse Resp BP Pulse Ox
98.4 F 72 18 116/80 94
12/30/24 02:36 12/30/24 06:00 12/30/24 06:00 12/30/24 06:00 12/30/24 01:36
Intake & Output
12/29/24 12/30/24 12/31/24
06:59 06:59 06:59
Intake Total 625 / 625
Output Total 1150 / 1150 200 / 200
Balance -525 / -525 -200 / -200
Intake:
IV fluids (Total) 625 / 625
Amount instilled into GI Tube ( 0 / 0
Total)
[place] Sump 0 / 0
Output:
Gastrointestinal tube output ( 350 / 350 200 / 200
Total)
[place] Sump 350 / 350 200 / 200
Urine, Mijares 800 / 800
Lab Results
12/30/24 03:30
Physical Exam
-
General: No Acute Distress and AOx3
HEENT: Grossly Normal
Abdomen: Soft, Non Distended, Tender (Appropriately tender near midline incision), No Guarding, No Rebound and Other (Ostomy pink, 2 to 3 cm blood, bowel sweat in the appliance)
Skin: Warm and Dry
Wound: No Signs of Infection and Dressing in Place (Aquacel with stable strikethrough)
--- NOTE | 2024-12-30 08:58 | PTCARENOTE ---
NGT and Mijares Dc as ordered without incident
[2024-12-30] MEDS: ENTEREG PO (09:21)
--- NOTE | 2024-12-30 09:48 | W.PN.HOSP.TC ---
Today's Communication/Plan
-
follow colorectal recs
continue IV Abx
Assessment / Plan
Assessment / Plan
Assessment:
Acute Perforated Diverticulitis
- CT: Moderate to large volume free air in the mid to upper abdomen suggesting perforated viscus. In light of history of diverticulitis and current findings compatible with diverticulosis and likely diverticulitis of the sigmoid colon with adjacent
small bowel wall thickening, most likely etiology would be perforated sigmoid diverticulitis.
- s/p sigmoidectomy with end-colostomy, U/S guided TAP block by anesthesia 12/29
- diet: sips/chips and ok for meds
- pain control
- anti-emetics
- Empiric IV Zosyn, day 2
- executive office manager f/u
- CRS following
DVT ppx: SCDs
Code: Full
Anticipated Discharge: > 48 hours
Subjective/Interval History
-
Date of Service: December 30, 2024
s/p ex-lap, abd washout and ostomy creation
NGT and Mijares removed this AM
pain well controlled, no n/v
Objective Data
-
Labs:
Laboratory Results
12/30/24 12/30/24
03:30 12:00
WBC 12.1 H Pending
Hgb 12.2 L D Pending
Hct 36.1 L Pending
Plt Count 161 Pending
Sodium 138
Potassium 4.6
Chloride 107
Carbon Dioxide 26
BUN 19
Creatinine 0.9
Glucose 131 H
Calcium 8.8 D
Vital Signs:
Vital Signs
Temp Pulse Resp BP Pulse Ox
98.4 F 72 18 116/80 94
12/30/24 02:36 12/30/24 06:00 12/30/24 06:00 12/30/24 06:00 12/30/24 01:36
I&O
12/29/24 12/30/24 12/31/24
06:59 06:59 06:59
Intake Total 625 / 625
Output Total 1150 / 1150 200 / 200
Balance -525 / -525 -200 / -200
Physical Exam
-
General: No Apparent Distress
HEENT: Normocephalic and Atraumatic
Respiratory: Negative Wheezes
Cardiac: Regular Rhythm and S1/S2
GI: Ostomy
Genito-urinary: No Costovertebral Tender
Musculoskeletal: No Edema
Neuro: AO x 3
Psych: Calm
Data Reviewed
-
Total Time Spent with Patient (in minutes): 44
Labs: Labs Reviewed by me
[2024-12-30] MEDS: TYLENOL PO ×3 (11:14→22:11)
--- NOTE | 2024-12-30 11:25 | PTCARENOTE ---
Pt refused Toradol states it gave him e farrell and refused tylenol as it does not work. Pt wants to drink alot of water explained to take it easy.
--- NOTE | 2024-12-30 11:53 | PTCARENOTE ---
Pt OOB to chair son at bedside.
[2024-12-30] MEDS: ZOFRAN 4 MG IV ×2 (12:33→20:12)
[2024-12-30 12:58] LABS: Hematocrit 37.3 % (39.0-52.0); Hemoglobin 12.7 g/dL (13.0-18.0); Mean Corpuscular Hgb 29.3 pg (27.0-31.0); Mean Corpuscular Volume 86.1 fL (80.0-94.0); Mean Platelet Volume 9.6 fL (7.4-10.4); Platelet Count 200 10^3/uL (130-400); Red Blood Cell Count 4.33 10^6/uL (4.70-6.10); Red Cell Dist. Width 13.2 % (11.5-14.5)
--- NOTE | 2024-12-30 13:25 | PTCARENOTE ---
Pt was nauseated giveb Hair feels better
[2024-12-30] MEDS: TYLENOL 1000 MG PO (14:20)
--- NOTE | 2024-12-30 15:19 | PTCARENOTE ---
Pt asking for Ativan that he takes at home 1mg at 3p and 2 mg [address] HS [address] DR Bertrand , Pt doesnot want Dilaudid at this time. Pt is feeling tired
--- NOTE | 2024-12-30 15:30 | WOUNDNOTE ---
[facility] RN note: Patient s/p ostomy surgery
See H&P for complete history.
PMH: Diverticulitis
Ostomy location and type: sigmoidectomy with end colostomy. LLQ Stoma [place], no leakage.
Instructed patient ostomy pouch emptying with return demonstration. Patient requesting we come back at a later time to do more teaching because he is very tired. Gave patient pamphlet regarding colostomy and encouraged to read. Patient confirmed his
girlfriend will be willing to see pouch change either or Saturday afternoon. [place] wafer # [id number] [place] pouch # [id number]
Ostomy supplies ordered from [facility] and at bedside.
Note to case management: VN services recommended for ostomy teaching.
Nursing care plan updated, will follow as needed.
[2024-12-30] MEDS: ATIVAN 1 MG PO (15:38)
[2024-12-30] MEDS: LOVENOX 40 MG SC (17:54)
[2024-12-30] MEDS: ATIVAN 2 MG PO (20:12)
[2024-12-30] MEDS: ENTEREG 12 MG PO (20:12)
[2024-12-30] MEDS: AMBIEN 5 MG PO (20:56)
[2024-12-31] VITALS (15 sets, daily range): BP systolic 97–144; BP diastolic 58–100; PULSE 70; O2SAT 96; BMI 19.3
[2024-12-31] MEDS: ZOSYN 50 IV ×4 (02:02→20:00)
[2024-12-31] MEDS: DILAUDID 0.5 MG IV ×6 (02:02→23:12)
--- NOTE | 2024-12-31 02:19 | PTCARENOTE ---
assumed care of patient. pt is AAOx3, anxious. able to make needs known. VSS. 94% RA. left side colostomy intact, positive for gas, liquid brown stool emptied throughout shift. pt with some slight nausea at beginning of the shift, asking for zofran.
5/10 pain to abdomen. asking for PRN dilaudid every 4 hours as well. pt able to sit and stand at the side of the bed by self without issues. using the urinal. midline abdominal dressing CDI with some old drainage noted. pt also requesting his home
sleeping pill. notified covering THELMA DOSHI ordered and given per OCT. care ongoing.
[2024-12-31] MEDS: TYLENOL PO ×4 (02:26→23:11)
[2024-12-31 05:42] LABS: Hemoglobin 11.1 g/dL (13.0-18.0); Mean Corp Hgb Conc. 33.6 g/dL (33.0-37.0); Mean Corpuscular Hgb 29.4 pg (27.0-31.0); Mean Corpuscular Volume 87.5 fL (80.0-94.0); Platelet Count 210 10^3/uL (130-400); Red Blood Cell Count 3.77 10^6/uL (4.70-6.10); Red Cell Dist. Width 13.1 % (11.5-14.5); White Blood Cell Count 9.8 10^3/uL (4.8-10.8)
[2024-12-31 06:07] LABS: ALT (SGPT) 23 U/L (0-50); AST (SGOT) 27 U/L (17-59); Albumin 2.8 g/dl (3.5-5.0); Alkaline Phosphatase 54 U/L (38-126); Blood Urea Nitrogen 22 mg/dl (9-20); Calcium 8.9 mg/dl (8.4-10.2); Carbon Dioxide 28 mmol/L (22-30); Chloride 107 mmol/L (98-107); Estimated Creatinine Clearance 68 ml/min; Glucose 88 mg/dl (70-99); Potassium 3.9 mmol/L (3.5-5.1); Sodium 140 mmol/L (135-145); Total Bilirubin 1.2 mg/dl (0.2-1.3); Total Protein 4.8 g/dl (6.3-8.2); eGFR > 60.00
--- NOTE | 2024-12-31 08:52 | W.PN.CRS1 ---
Today's Communication / Plan
-
As below
Assessment/Plan
-
64-year-old male with PMH of HLD, AAA (currently under evaluation by vascular), and recurrent diverticulitis (first episode in 2010 requiring IR drain; since then 3 flares requiring p.o. antibiotics without hospitalization) who presents for
significant abdominal pain for the last 3 days, WBC 16.[address] scan showed moderate pneumoperitoneum associated with diverticulitis. Last colonoscopy 10/2022 showing diverticulosis and transverse colon TA.
POD 2 sigmoidectomy with end-colostomy, U/S guided TAP block by anesthesia
AFVSS
WBC 9.8 from 12.1, Hb 11.1 from 12.7, CR 1.1
�Keep on sips and chips; will obtain AXR to rule out bowel distention
� Pain control with Tylenol, Toradol, Dilaudid as needed; continue Entereg
�Continue IVF
� Continue DVT PPx with Lovenox; due to drop in hemoglobin, will repeat CBC at noon
� Appreciate [facility] for ostomy education and supplies
� Encourage IS/OOB
� Appreciate hospitalist
Subjective Data
Subjective Data
Date of Service: December 31, 2024
No overnight events. [place] a little nauseous last night, feels okay this morning. Nurse told him that he was taking in too much in 'sips.'
Pain controlled.
+ Ostomy function (minimal stool in the bag, reports passing flatus and emptying stool since yesterday) +voiding
Pt is OOB.
Objective Data
-
Vital Signs
Temp Pulse Resp BP Pulse Ox
98.4 F 78 20 111/83 98
12/31/24 07:53 12/31/24 07:53 12/31/24 07:53 12/31/24 06:00 12/31/24 07:53
Intake & Output
12/30/24 12/31/24 01/01/25
06:59 06:59 06:59
Intake Total 625 / 625 1600 / 1600
Output Total 1150 / 1150 1750 / 1750
Balance -525 / -525 -150 / -150
Intake:
IV fluids (Total) 625 / 625 1500 / 1500
IV piggybacks 100 / 100
Amount instilled into GI Tube ( 0 / 0
Total)
[place] Sump 0 / 0
Output:
Liquid stool amount 350 / 350
Colostomy 350 / 350
Gastrointestinal tube output ( 350 / 350 200 / 200
Total)
[place] Sump 350 / 350 200 / 200
Urine, M[place] 800 / 800
Urine, Voided 1200 / 1200
Other:
Number of unmeasured liquid
stools
Colostomy 30
Lab Results
12/31/24 05:09
12/31/24 05:09
Physical Exam
-
General: No Acute Distress and AOx3
Abdomen: Soft, Distended (Mildly distended with tympany), Tender (Appropriately tender near midline incision), No Guarding, No Rebound and Other (Ostomy pink, mildly edematous)
Wound: No Signs of Infection and Dressing in Place (Aquacel)
[2024-12-31] MEDS: ENTEREG 12 MG PO ×2 (09:13→20:00)
[2024-12-31] MEDS: NSS 1000 IV (09:20)
[2024-12-31] MEDS: ZOFRAN 4 MG IV (09:44)
--- NOTE | 2024-12-31 11:20 | W.PN.HOSP.TC ---
Today's Communication/Plan
-
AXR prior to possible diet
follow colorectal recs
continue IV Abx
Assessment / Plan
Assessment / Plan
Assessment:
Acute Perforated Diverticulitis
- CT: Moderate to large volume free air in the mid to upper abdomen suggesting perforated viscus. In light of history of diverticulitis and current findings compatible with diverticulosis and likely diverticulitis of the sigmoid colon with adjacent
small bowel wall thickening, most likely etiology would be perforated sigmoid diverticulitis.
- s/p sigmoidectomy with end-colostomy, U/S guided TAP block by anesthesia 12/29
- diet: sips/chips and ok for meds. AXR pending due to nausea
- pain control
- anti-emetics
- Empiric IV Zosyn, day 3
- furniture manager f/u
- CRS following
DVT ppx: SCDs
Code: Full
Anticipated Discharge: > 48 hours
Subjective/Interval History
-
Date of Service: December 31, 2024
some nausea
AXR pending
Objective Data
-
Labs:
Laboratory Results
12/31/24 12/31/24
05:09 12:00
WBC 9.8 Pending
Hgb 11.1 L Pending
Hct 33.0 L Pending
Plt Count 210 Pending
Sodium 140
Potassium 3.9
Chloride 107
Carbon Dioxide 28
BUN 22 H
Creatinine 1.1
Glucose 88
Calcium 8.9
Total Bilirubin 1.2
AST 27
ALT 23
Alkaline Phosphatase 54
Vital Signs:
Vital Signs
Temp Pulse Resp BP Pulse Ox
98.2 F 78 20 111/83 98
12/31/24 11:08 12/31/24 07:53 12/31/24 07:53 12/31/24 06:00 12/31/24 07:53
I&O
12/30/24 12/31/24 01/01/25
06:59 06:59 06:59
Intake Total 625 / 625 1600 / 1600
Output Total 1150 / 1150 1750 / 1750
Balance -525 / -525 -150 / -150
Physical Exam
-
General: No Apparent Distress
HEENT: Normocephalic and Atraumatic
Respiratory: Negative Wheezes
Cardiac: Regular Rhythm and S1/S2
GI: Soft and Nontender
Neuro: AO x 3
Psych: Calm
Data Reviewed
-
Total Time Spent with Patient (in minutes): 42
Labs: Labs Reviewed by me
[2024-12-31 12:49] LABS: % Eosinophils 0.7 % (0-6); % Immature Granulocytes 0.4 % (0-0.5); % Lymphocytes 5.2 % (20.5-51.1); % Monocytes 6.4 % (1.7-9.3); % Neutrophils 87.3 % (42.2-75.2); Absolute Eosinophils 0.1 10^3/uL (0-0.7); Absolute Lymphocytes 0.4 10^3/uL (1.2-3.4); Absolute Monocytes 0.5 10^3/uL (0.1-0.6); Absolute Neutrophils 7.3 10^3/uL (1.4-6.5); Hematocrit 29.5 % (39.0-52.0); Hemoglobin 10.1 g/dL (13.0-18.0); Mean Corp Hgb Conc. 34.2 g/dL (33.0-37.0); Mean Corpuscular Hgb 29.4 pg (27.0-31.0); Mean Platelet Volume 9.6 fL (7.4-10.4); Nucleated Red Blood Cells % 0 % (-); Platelet Count 187 10^3/uL (130-400); Red Blood Cell Count 3.43 10^6/uL (4.70-6.10); Red Cell Dist. Width 13.1 % (11.5-14.5); White Blood Cell Count 8.3 10^3/uL (4.8-10.8)
--- NOTE | 2024-12-31 12:56 | PTOTSP ---
PATIENT MOBILIZING INDEPENDENTLY ON LEVEL SURFACES WELL ELEVATIONS REQUIRING NO FURTHER ACUTE CARE SKILLED P.T. AT THIS TIME. ENCOURAGED PATIENT TO AMBULATE ON UNIT AD [facility]STAN ABLE. WILL DISCHARGE FROM P.T. SERVICES.
[2024-12-31] MEDS: ATIVAN 1 MG PO (15:01)
--- NOTE | 2024-12-31 16:19 | WOUNDNOTE ---
[facility] RN NOTE: Met with patient for pouch change and ostomy care. Patient asked appropriate questions and practiced emptying pouch. Patient given instruction on pouch change, general ostomy care, and how to cut and apply barrier. Stoma pink and
budded with liquid stool. Peristomal skin intact, no leaking noted. Pouch changed with [place] barrier #[id number] and pouch #[id number]. Midline dressing remains intact. Heels and sacrum intact. With patients permission, [place] Secure Start Kit ordered.
Patient agreeable for VN at discharge.
--- NOTE | 2024-12-31 16:22 | WOUNDNOTE ---
Sahil Barrier #[id number] and Pouch #[id number]. [place] seal as needed.
Call supply company (list in folder provided) for monthly Ostomy supplies after discharge (ask VN to order supplies while on service).
Follow up with surgeon.
Call [facility] RN nurse for ostomy pouching concerns or leakage problems [phone] or [phone] or [phone].
[2024-12-31] MEDS: NSS IV (18:21)
[2024-12-31] MEDS: ATIVAN 2 MG PO (21:00)
[2024-12-31] MEDS: AMBIEN 5 MG PO (21:28)
--- NOTE | 2024-12-31 21:36 | PTCARENOTE ---
Pt oriented, alert. Reports having several brown liq stools in colostomy throughout the day, emptied by student nurse per pt. Pt reports pain throughout abdomen, anticipates next dose of diluadid. PRN ambien given at pt request. Pt denies toradol
and tylenol., states that they will not work for him. Able to use urinal independently, emptied by this RN. Call saucedo within reach, pt demonstrates use.
[2025-01-01] VITALS: BP 128/72
[2025-01-01] MEDS: ZOSYN 50 IV ×3 (01:52→16:20)
[2025-01-01 02:43] VITALS: BP 137/75
[2025-01-01 02:44] VITALS: BMI 19.1
[2025-01-01] MEDS: DILAUDID 0.5 MG IV ×2 (03:12→07:44)
[2025-01-01] MEDS: TYLENOL PO ×2 (05:09→12:27)
[2025-01-01 05:29] VITALS: BP 125/81
[2025-01-01 05:47] LABS: Hematocrit 32.6 % (39.0-52.0); Hemoglobin 11.3 g/dL (13.0-18.0); Mean Corp Hgb Conc. 34.7 g/dL (33.0-37.0); Mean Corpuscular Hgb 29.3 pg (27.0-31.0); Mean Corpuscular Volume 84.5 fL (80.0-94.0); Mean Platelet Volume 9.2 fL (7.4-10.4); Platelet Count 217 10^3/uL (130-400); Red Blood Cell Count 3.86 10^6/uL (4.70-6.10); Red Cell Dist. Width 12.8 % (11.5-14.5); White Blood Cell Count 9.8 10^3/uL (4.8-10.8)
[2025-01-01 06:00] VITALS: BP 128/86
[2025-01-01 06:14] LABS: ALT (SGPT) 25 U/L (0-50); AST (SGOT) 25 U/L (17-59); Albumin 3.2 g/dl (3.5-5.0); Alkaline Phosphatase 51 U/L (38-126); Blood Urea Nitrogen 16 mg/dl (9-20); Calcium 8.5 mg/dl (8.4-10.2); Carbon Dioxide 26 mmol/L (22-30); Chloride 105 mmol/L (98-107); Estimated Creatinine Clearance 74 ml/min; Glucose 81 mg/dl (70-99); Potassium 3.4 mmol/L (3.5-5.1); Sodium 139 mmol/L (135-145); Total Bilirubin 1.1 mg/dl (0.2-1.3); Total Protein 5.1 g/dl (6.3-8.2); eGFR > 60.00
[2025-01-01] MEDS: ENTEREG 12 MG PO (07:44)
[2025-01-01 08:09] VITALS: BP 129/82
--- NOTE | 2025-01-01 09:10 | PTCARENOTE ---
Pt is AAAOx 3 asking for Dilaudid Q4hr for pain of 5 pt ambulates to BR takes off monitor but does not put it back on. Suggested pt try to wean off Dilaudid as he will not go hiome on Dilaudid . Pt empting his colostomy mostly independent care
[2025-01-01] MEDS: KCL 40 MEQ PO (09:53)
--- NOTE | 2025-01-01 10:29 | W.PN.CRS1 ---
Today's Communication / Plan
-
Full liquids
Oxycodone
Lovenox
Assessment/Plan
-
64-year-old male with PMH of HLD, AAA (currently under evaluation by vascular), and recurrent diverticulitis (first episode in 2010 requiring IR drain; since then 3 flares requiring p.o. antibiotics without hospitalization) who presents for
significant abdominal pain for the last 3 days, WBC 16.[address] scan showed moderate pneumoperitoneum associated with diverticulitis. Last colonoscopy 10/2022 showing diverticulosis and transverse colon TA.
POD 3 sigmoidectomy with end-colostomy, U/S guided TAP block by anesthesia
AFVSS
WBC 9.8 from 9.8, Hb 11.3 from 11.1, creatinine 1.0
� Advance diet to full liquids
� Pain control with Tylenol, Toradol, Dilaudid as needed. Added oxycodone as needed. Continue Entereg
�Continue IVF
�Lovenox for DVT prophylaxis, teds and SCDs in place
� Appreciate [facility] for ostomy education and supplies. Patient had 1 teaching already and did well.
� Encourage IS/OOB
� Appreciate hospitalist
Subjective Data
Subjective Data
Date of Service: January 01, 2025
Patient states he is feeling well. He denies nausea or vomiting. He tolerated clears without difficulty. He has bowel function. His pain is controlled.
Objective Data
-
Vital Signs
Temp Pulse Resp BP Pulse Ox
97.4 F 84 18 129/82 98
01/01/25 07:50 01/01/25 08:09 01/01/25 08:09 01/01/25 08:09 01/01/25 09:19
Intake & Output
12/31/24 01/01/25 01/02/25
06:59 06:59 06:59
Intake Total 1600 / 1600 480 / 480
Output Total 1750 / 1750 1800 / 1800 450 / 450
Balance -150 / -150 -1800 / -1800 30 / 30
Intake:
Oral fluids 480 / 480
IV fluids (Total) 1500 / 1500
IV piggybacks 100 / 100
Output:
Liquid stool amount 350 / 350
Colostomy 350 / 350
Gastrointestinal tube output ( 200 / 200
Total)
[place] Sump 200 / 200
Urine, Voided 1200 / 1200 1800 / 1800 450 / 450
Other:
Number of unmeasured liquid
stools
Colostomy 30
Lab Results
01/01/25 05:27
01/01/25 05:27
Physical Exam
-
General: No Acute Distress and AOx3
Abdomen: Soft, Non Distended, Non Tender and Other (Ostomy functioning with stool and flatus in bag)
Skin: Warm and Dry
--- NOTE | 2025-01-01 11:49 | W.PN.HOSP.TC ---
Today's Communication/Plan
-
dc to home if tolerates diet later
Assessment / Plan
Assessment / Plan
Assessment:
Acute Perforated Diverticulitis
- CT: Moderate to large volume free air in the mid to upper abdomen suggesting perforated viscus. In light of history of diverticulitis and current findings compatible with diverticulosis and likely diverticulitis of the sigmoid colon with adjacent
small bowel wall thickening, most likely etiology would be perforated sigmoid diverticulitis.
- s/p sigmoidectomy with end-colostomy, U/S guided TAP block by anesthesia 12/29
- diet: regular diet
- pain control
- anti-emetics
- dc on Augmentin through 01/02/25
- commercial assistant f/u
- CRS follow up outpatient
DVT ppx: Lovenox
Code: Full
More than 30 minutes spent in discharge including
Final examination of the patient
Summarizing hospital stay
Instructions for continuing care to all relevant caregivers
Preparation of discharge records, prescriptions, and referral forms
Total time spent (in minutes):41
Anticipated Discharge: Today
Subjective/Interval History
-
Date of Service: January 01, 2025
denies any new complaints at present, tolerating CLD
Objective Data
-
Labs:
Laboratory Results
01/01/25
05:27
WBC 9.8
Hgb 11.3 L
Hct 32.6 L
Plt Count 217
Sodium 139
Potassium 3.4 L
Chloride 105
Carbon Dioxide 26
BUN 16
Creatinine 1.0
Glucose 81
Calcium 8.5
Total Bilirubin 1.1
AST 25
ALT 25
Alkaline Phosphatase 51
Vital Signs:
Vital Signs
Temp Pulse Resp BP Pulse Ox
97.4 F 84 18 129/82 98
01/01/25 07:50 01/01/25 08:09 01/01/25 08:09 01/01/25 08:09 01/01/25 09:19
I&O
12/31/24 01/01/25 01/02/25
06:59 06:59 06:59
Intake Total 1600 / 1600 530 / 530
Output Total 1750 / 1750 1800 / 1800 450 / 450
Balance -150 / -150 -1800 / -1800 80 / 80
Physical Exam
-
General: No Apparent Distress
HEENT: Normocephalic and Atraumatic
Respiratory: Negative Wheezes
Cardiac: Regular Rhythm and S1/S2
GI: Soft and Nontender
Neuro: AO x 3
Data Reviewed
-
Total Time Spent with Patient (in minutes): 41
Labs: Labs Reviewed by me
--- NOTE | 2025-01-01 11:55 | W.DS.TRANS ---
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
-
Discharge Instructions:
Discharge Diagnosis/Procedures acute diverticulitis with perforation s/p
sigmoidectomy with end-colostomy 12/29
Diet Regular,As tolerated
Activity As tolerated
Instructions:
Stand-Alone Forms:
Changes to Home Medications: No
Discharge Medications:
DC Medications w/original date entered in [facility]
cbkuiej-umbtubgyu-umrs 333 mg-133 mg-5 mg tablet 1 tab PO DAILY Supplement 09/12/10
lorazepam 1 mg tablet 1 mg PO DAILY Mental Health/Anxiety 09/12/10
omega-3 fatty acids-fish oil 340 mg-1,000 mg capsule (Fish Oil) 1 cap PO DAILY Supplement 09/12/10
aspirin 81 mg tablet,delayed release 81 mg PO DAILY Blood Clot Prevention/Tx 12/29/24
calcium carbonate 550 mg-magnesium hydroxide 110 mg chewable tablet 2 tab PO DAILYPRN PRN stomach issuses 12/29/24
simethicone 80 mg chewable tablet 160 mg PO DAILYPRN PRN gas pains 12/29/24
simvastatin 40 mg tablet (Zocor) 40 mg PO DAILY High Cholesterol 12/29/24
therapeutic multivitamin 1 tab PO DAILY Supplement 12/29/24
varenicline tartrate 0.5 mg (11)-1 mg (42) tablets in a dose pack 0 ea PO PER PKG DIR Smoking Cessation 12/29/24
zaleplon 10 mg capsule 10 mg PO HSPRN PRN sleep 12/29/24
lorazepam 2 mg tablet 2 mg PO DAILY Mental Health/Anxiety 12/30/24
acetaminophen 325 mg tablet 650 mg (2 x 325 mg) PO Q4HPRN PRN Mild Pain / Temp > 101 #100 tabs 01/01/25
amoxicillin 875 mg-potassium clavulanate 125 mg tablet 1 tab PO BID #3 tabs 01/01/25
ondansetron 4 mg disintegrating tablet 4 mg PO Q6H PRN nausea and vomiting #20 tabs 01/01/25
Home Medication Changes
Pending Results: No
Total time spent discharging patient (in min): 41
[2025-01-01] MEDS: ROXICODONE 5 MG PO ×2 (12:17→16:20)
--- NOTE | 2025-01-01 12:58 | CM ---
Patient with Dx Acute Perforated Diverticulitis s/p sigmoidectomy with end-colostomy. Room air. PT/OT; no needs.
Met with patient who was preparing for d/c. The patient states he feels ready to go home today. He states he has been ambulating in the room and he feels comfortable with his knowledge of how to manage his colostomy. Offered HH for ostomy nurse
and he chooses [facility]. His son/DIL will provide transport home.
Met with ANNA Causey Ostomy Nurse; she provided patient with ostomy supplies for home.
Referral to [facility].
Plan home today with [facility].
--- NOTE | 2025-01-01 13:01 | WOUNDNOTE ---
WO RN NOTE: Patient visited again for ostomy teaching before discharge today. Patient did not have specific questions, but wanted to make sure he had enough supplies to go home. Patient will be going home with approximately 3 weeks of ostomy
supplies. Ordering of supplies was reviewed. Patient reports he has emptied pouch 2 x today. This [facility] underwriter offered practice with cutting barrier but patient declined and said he felt confident he can do at home. Spoke to CM and patient and plan is for
home with [facility].
--- NOTE | 2025-01-01 14:19 | VNURNOTE ---
Home Health Liaison met with patient at bedside to discuss [facility] nurse/therapy, visits, schedule and homebound status. Patient is agreeable and understands that visits at home will be 2-3 x per week to assess and teach medical and ostomy management.
Patient is aware that [facility] will contact them for start of care in 1-2 days after discharge from .
[facility] referral completed in [facility].
--- NOTE | 2025-01-01 14:41 | PTCARENOTE ---
Pt states he ate 1/2 of his regular diet and feels ok.
[2025-01-01 16:24] VITALS: BP 148/91
[2025-01-01] MEDS: ATIVAN 1 MG PO (16:31)
[2025-01-01] MEDS: ZOFRAN 4 MG IV (16:45)
--- NOTE | 2025-01-01 16:50 | PTCARENOTE ---
Pt given instuctions no questions. Pt states hes queezy and asked for one more dose of Zofran
--- NOTE | 2025-01-01 17:51 | PTCARENOTE ---
Son here for pt has no clothes called for paper scrubs
--- NOTE | 2025-01-01 17:59 | PTCARENOTE ---
Pt left in [employer] scrubs with son and tech
== END 2025-01-01 18:30 | disposition home health service (06) | DRG 330 ==
LOC: IMU 05:18
PROVIDERS: Emergency Medicine; Physician Assistant; ADMITTING PHYSICIAN Hospitalist; ATTENDING PHYSICIAN Internal Medicine; CONSULT PHYSICIAN Surgery; EMERGENCY PHYSICIAN Emergency Medicine; FAMILY PHYSICIAN Family Medicine
PROC: 0D1M0Z4 Bypass Descending Colon to Cutaneous, Open Approach (ICD-10-PCS; 2024-12-29)
PROC: 0DTN0ZZ Resection of Sigmoid Colon, Open Approach (ICD-10-PCS; 2024-12-29)
PROC: 3E0M05Z Introduction of Adhesion Barrier into Peritoneal Cavity, Open Approach (ICD-10-PCS; 2024-12-29)
DX: K57.20 Diverticulitis of large intestine with perforation and abscess without bleeding (principal); R18.8 Other ascites; R63.0 Anorexia; F17.200 Nicotine dependence, unspecified, uncomplicated; F41.9 Anxiety disorder, unspecified; G47.00 Insomnia, unspecified; G62.9 Polyneuropathy, unspecified; E78.5 Hyperlipidemia, unspecified; R91.8 Other nonspecific abnormal finding of lung field; I71.40 Abdominal aortic aneurysm, without rupture, unspecified; Z63.5 Disruption of family by separation and divorce; Z80.1 Family history of malignant neoplasm of trachea, bronchus and lung; Z80.3 Family history of malignant neoplasm of breast; Z79.82 Long term (current) use of aspirin
CPT/HCPCS: 88307; 74019; 74177; 80048; 80053; 81003; 81015; 83605; 83690; 83735; 85025; 85027; 85610; 85730; 86850; 86900; 86901; 96361; 96365; 96375; 96376; 97116; 97162; 99285; 99406; C1776; Q9967

== ENCOUNTER 2025-01-12 14:54 | Inpatient (IN) | payer OTHER, SELFPAY ==
[2025-01-12] VITALS (39 sets, daily range): BP systolic 74–128; BP diastolic 50–98; BMI 18.6
--- NOTE | 2025-01-12 12:10 | ED.GENMED ---
History of Present Illness
<Moraima Bennett PA-C - Last Filed: 01/12/25 16:33>
General
Chief Complaint: Rectal Bleeding
Source: patient and records
Exam Limitations: none
Time Seen by Provider: 01/12/25 12:04
History of Present Illness
History of Present Illness:
64yoM with a history of recent sigmoidectomy and colostomy on 12/29/24 for perforated diverticulitis, AAA, and hyperlipidemia presenting for evaluation of bloody stool. Patient started to have bloody output from his colostomy around 10:30am this
morning. He has emptied his bag about 5-6x since then. He had a standing appointment with Dr. Bertrand today and he was tachycardic to the 140s and appeared pale. He was sent immediately to the ED for evaluation. He reports lightheadedness but
denies syncope. Only blood thinner is a baby aspirin.
Past History
<Moraima Bennett PA-C - Last Filed: 01/12/25 16:33>
Past History
ED Past Medical History: Other (diverticulitis)
ED Past Surgical History: None
Social History
Tobacco: Smoker
Alcohol: Occasional
Drug: None
Personal: Other ( )
Employment: Employed
Phy Exam
<Moraima Bennett PA-C - Last Filed: 01/12/25 16:33>
General Physical Exam
General Presentation: moderate distress
General Skin: warm, dry and pale
General Mental: alert
ENT Exam
ENT Exam: normocephalic
Cardiovascular Exam
Cardiovascular Exam: tachycardia
Pulmonary Exam
Pulmonary Exam: no respiratory distress
Gastrointestinal Exam
Gastrointestinal Exam: non tender, soft, non distended and surgical scar
External Findings: colostomy (Bag is full of dark red blood with clots)
Neurological Exam
Neurological Exam: alert
Lukas Coma Scale
Eye Opening: Spontaneous
Verbal Response: Oriented
Motor Response: Obeys Commands
GCS Total Score: 15
Skin Exam
Skin Exam: pallor
Psychiatric Exam
Psychiatric Exam: normal mood/affect
Course
<Moraima Bennett PA-C - Last Filed: 01/12/25 16:33>
Orders/Labs/Results
Orders:
Orders
01/12/25 12:08
CT Angio Abd/Pelvis w/wo IV [CT Abd/pelvis Angio W/wo Iv] Stat
Comment:
Reason For Exam: GI bleed
0.9% Sodium Chloride 1000 ml [Nss] 1,000 ml IV BOLUS
01/12/25 12:19
Type+Screen Urgent
Complete Blood Count/With Diff Urgent
Comprehensive Metabolic Panel Urgent
Lactate Level [Lactic Acid] Urgent
PTT Urgent
Prothrombin Time Urgent
01/12/25 14:11
Consult Interventional Radiology [IRAD CONSULT] Urgent
Consulting Provider: Alex Rodriguez
Was physician already notified: Yes
Procedure being ordered, including laterality if applicable: embolization of GI bleed
Acknowledgement that appropriate orders are entered: Yes
01/12/25 14:16
Blood Bank Products [* Blood Bank Products] Stat
Blood Bank Products: *Packed RBC Leuko(PRBC's)
Quantity: 2
Transfuse Today: Yes
Reason: Bleeding
01/12/25 14:24
Admit/Transfer Patient As Directed
Co-Sign Provider:
Level of Care: Inpatient admission
Assign to:: ICU
Physician / Group: Concepcion
Diagnosis: Hemorrhagic Shock, GI Bleed, Enterocolitis
Reason for Hospitalization: IR embolization, blood transfusion
Expected length of stay greater than two midnights?: Yes
ELOS- Estimated Length of Stay in days: 4
I certify the patient meets the requirements for IP care: Yes
01/12/25 14:26
Emergent Blood Release Stat
Blood Bank Products: *Packed RBC Leuko(PRBC's)
Quantity: 2 u
Reason: Bleeding
A Blood Permit is Required for all Blood.
FOR LAB PICKUP:
Take order sheet to Blood Bank to picker box operator blood products in validated cooler
Immediately return to patient care area.
Blood products released by
Blood Products picked up by
Sent to
Date and Time
01/12/25 14:28
PRN Pain Medication Management As Directed
May give lesser potent ordered pain med per pt: Yes
preference::
Protocol:: Medication orders for pain may be administered in a
manner that supports deferring to patient preference
when the pt is:
- Requesting an ordered lesser potent pain medication.
Least to most potent pain medications are defined
as: acetaminophen < NSAID < tramadol < opioids
(morphine, oxycodone, hydromorphone).
- Requesting a lesser dose of the same medication IF
ORDERED.
- Requesting a less intrusive route of administration
if both routes are prescribed by the provider (PO <
IV).
01/12/25 14:29
Code Status As Directed
Resuscitation Status: Full Code
01/12/25 14:30
Blood Culture Q30M
BETSEY Source: Blood/Venous
Specimen Description:
01/12/25 15:00
Blood Culture Q30M
BETSEY Source: Blood/Venous
Specimen Description:
01/12/25 16:00
H&H Q6H
01/12/25 22:00
H&H Q6H
01/13/25 04:00
H&H Q6H
Abnormal Lab Results
01/12/25
12:19
WBC 18.5 H 10^3/uL
(4.8-10.8)
RBC 4.28 L 10^6/uL
(4.70-6.10)
Hgb 12.2 L g/dL
(13.0-18.0)
Hct 36.2 L %
(39.0-52.0)
Plt Count 706 H 10^3/uL
(130-400)
Abs Immat Gran (auto) 0.2 H 10^3/uL
(0-0.05)
Absolute Neuts (auto) 15.5 H 10^3/uL
(1.4-6.5)
Absolute Monos (auto) 1.2 H 10^3/uL
(0.1-0.6)
Immature Gran % 1.0 H %
(0-0.5)
Neutrophils % 83.4 H %
(42.2-75.2)
Lymphocytes % 8.1 L %
(20.5-51.1)
Glucose 153 H mg/dl
(70-99)
Lactic Acid 2.3 H mmol/L
(0.7-2.0)
Crossmatch IS Only See Detail
01/12/25 12:19
01/12/25 12:19
Vital Signs
Initial and Last Documented VS:
Initial Vital Signs
Temp Pulse Resp BP Pulse Ox
98.5 F 146 17 128/90 99
01/12/25 11:59 01/12/25 11:59 01/12/25 11:59 01/12/25 11:59 01/12/25 11:59
Last Documented Vital Signs
Temp Pulse Resp BP Pulse Ox
98.4 F 97 15 103/80 100
01/12/25 15:10 01/12/25 15:10 01/12/25 15:10 01/12/25 15:10 01/12/25 15:10
<Iwona Anderson MD - Last Filed: 01/12/25 14:43>
Orders/Labs/Results
Orders:
Orders
01/12/25 12:08
CT Angio Abd/Pelvis w/wo IV [CT Abd/pelvis Angio W/wo Iv] Stat
Comment:
Reason For Exam: GI bleed
0.9% Sodium Chloride 1000 ml [Nss] 1,000 ml IV BOLUS
01/12/25 12:19
Type+Screen Urgent
Complete Blood Count/With Diff Urgent
Comprehensive Metabolic Panel Urgent
Lactate Level [Lactic Acid] Urgent
PTT Urgent
Prothrombin Time Urgent
01/12/25 14:11
Consult Interventional Radiology [IRAD CONSULT] Urgent
Consulting Provider: Alex Rodriguez
Was physician already notified: Yes
Procedure being ordered, including laterality if applicable: embolization of GI bleed
Acknowledgement that appropriate orders are entered: Yes
01/12/25 14:16
Blood Bank Products [* Blood Bank Products] Stat
Blood Bank Products: *Packed RBC Leuko(PRBC's)
Quantity: 2
Transfuse Today: Yes
Reason: Bleeding
01/12/25 14:24
Admit/Transfer Patient As Directed
Co-Sign Provider:
Level of Care: Inpatient admission
Assign to:: ICU
Physician / Group: Concepcion
Diagnosis: Hemorrhagic Shock, GI Bleed, Enterocolitis
Reason for Hospitalization: IR embolization, blood transfusion
Expected length of stay greater than two midnights?: Yes
ELOS- Estimated Length of Stay in days: 4
I certify the patient meets the requirements for IP care: Yes
01/12/25 14:26
Emergent Blood Release Stat
Blood Bank Products: *Packed RBC Leuko(PRBC's)
Quantity: 2 u
Reason: Bleeding
A Blood Permit is Required for all Blood.
FOR LAB PICKUP:
Take order sheet to Blood Bank to picker box operator blood products in validated cooler
Immediately return to patient care area.
Blood products released by
Blood Products picked up by
Sent to
Date and Time
01/12/25 14:28
PRN Pain Medication Management As Directed
May give lesser potent ordered pain med per pt: Yes
preference::
Protocol:: Medication orders for pain may be administered in a
manner that supports deferring to patient preference
when the pt is:
- Requesting an ordered lesser potent pain medication.
Least to most potent pain medications are defined
as: acetaminophen < NSAID < tramadol < opioids
(morphine, oxycodone, hydromorphone).
- Requesting a lesser dose of the same medication IF
ORDERED.
- Requesting a less intrusive route of administration
if both routes are prescribed by the provider (PO <
IV).
01/12/25 14:29
Code Status As Directed
Resuscitation Status: Full Code
01/12/25 14:30
Blood Culture Q30M
BETSEY Source: Blood/Venous
Specimen Description:
01/12/25 15:00
Blood Culture Q30M
BETSEY Source: Blood/Venous
Specimen Description:
01/12/25 16:00
H&H Q6H
01/12/25 22:00
H&H Q6H
01/13/25 04:00
H&H Q6H
Abnormal Lab Results
01/12/25
12:19
WBC 18.5 H 10^3/uL
(4.8-10.8)
RBC 4.28 L 10^6/uL
(4.70-6.10)
Hgb 12.2 L g/dL
(13.0-18.0)
Hct 36.2 L %
(39.0-52.0)
Plt Count 706 H 10^3/uL
(130-400)
Abs Immat Gran (auto) 0.2 H 10^3/uL
(0-0.05)
Absolute Neuts (auto) 15.5 H 10^3/uL
(1.4-6.5)
Absolute Monos (auto) 1.2 H 10^3/uL
(0.1-0.6)
Immature Gran % 1.0 H %
(0-0.5)
Neutrophils % 83.4 H %
(42.2-75.2)
Lymphocytes % 8.1 L %
(20.5-51.1)
Glucose 153 H mg/dl
(70-99)
Lactic Acid 2.3 H mmol/L
(0.7-2.0)
Crossmatch IS Only See Detail
01/12/25 12:19
01/12/25 12:19
Vital Signs
Initial and Last Documented VS:
Initial Vital Signs
Temp Pulse Resp BP Pulse Ox
98.5 F 146 17 128/90 99
01/12/25 11:59 01/12/25 11:59 01/12/25 11:59 01/12/25 11:59 01/12/25 11:59
Last Documented Vital Signs
Temp Pulse Resp BP Pulse Ox
98.4 F 97 15 103/80 100
01/12/25 15:10 01/12/25 15:10 01/12/25 15:10 01/12/25 15:10 01/12/25 15:10
<Moraima Bennett PA-C - Last Filed: 01/12/25 16:33>
MDM/Problems Addressed
Differential Diagnosis Includes:
64yoM here with bloody output from his colostomy. Started at 10:30am this morning. Has emptied his bag several times and blood keeps reaccumulating. He is tachycardic in triage to the 140s. HR 120-130s on initial exam. BP stable. He is pale but
mentating well. Differential diagnosis includes but is not limited to: GI bleed, acute blood loss anemia
Initial ED plan: Check CBC, CMP, coags, lactate, type and screen, and CTA abdomen. IV fluid bolus.
<Iwona Anderson MD - Last Filed: 01/12/25 14:43>
*Critical Care Note
Total Time (30-74mins, 75-104mins- exclusive of procedures): 35
comment:
Critical care statement: A total of 35 minutes of critical care time was provided for this patient. This includes management of unstable vital signs, evaluation of the patient at bedside, reviewing the patient's pertinent medical records, ordering
and reviewing studies, arranging urgent treatment with development of a management plan, evaluating patient's response to treatment, frequent reassessment, and discussion with consultants. This time was separate from time utilized to perform the
aforementioned documented procedures.
<Moraima Bennett PA-C - Last Filed: 01/12/25 16:33>
Update Note
Update Note:
Hemoglobin 12.2. CTA shows evidence of active GI bleeding in the region of the hepatic flexure. Care coordinated with colorectal surgery and IR. Plan for IR embolization. Prior to patient leaving for IR procedure, I was called to bedside for
syncope. Patient noted to be diaphoretic and pale. SBP dropped to the 70-80s and HR also dropped to the 90s. Two units of PRBCs ordered for STAT transfusion and blood hung to gravity. Blood pressure and mentation improved after transfusion started
and patient transported to the IR suite for further care. Nursing staff emptied colostomy 3x during ED stay for ongoing bleeding.
ED Attending Note
<Moraima Bennett PA-C - Last Filed: 01/12/25 16:33>
-
Portions of this chart may have been created with voice recognition software.� Occasional wrong word or��sound alike� substitutions may have occurred due to the inherent limitations of voice recognition software.
<Iwona Anderson MD - Last Filed: 01/12/25 14:43>
ED Attending Note
Patient seen and examined by attending physician: Yes
I performed the substantive portion of visit, reviewed & personally made and approve the management plan that is documented in note by myself or MELVIN.: Yes
ED Attending Note:
I have seen and evaluated the patient with a [id number] encounter. I have spoken to the [PA] and involved in the medical history, the physical exam, medical decision making.
Evaluation and management service: agree unless noted differently below.
Results interpretation: agree unless noted differently below.
Patient is a 64-year-old male with recent ostomy after being admitted for perforated diverticulitis presenting to the emergency department with GI bleeding. Patient states that he woke up and for the past 3 hours he has emptied out his ostomy bag 5
times and has been bright red blood. He coincidentally had an appointment today with his colorectal surgeon who advised him to come to the emergency department. Patient is not on any blood thinners. He does feel lightheaded dizzy. No syncopal
events. Denies any abdominal pain nausea or vomiting. During my evaluation patient is tachycardic and slightly pale. His abdomen is soft his ostomy bag is full with maroon-colored stool and blood. Concern for GI bleed, acute blood loss anemia.
Patient taken over the stat CTA. Hemoglobin is stable. Will consent patient to RBC transfusion and discussed with colorectal surgery. Anticipate admission.
CTA with active bleed. Plan was to take patient to IR. Nursing called as patient became acutely hypotensive and pale. Patient states that he felt nauseous and then had a lot of bloody stool, out of his ostomy. He did become bradycardic as well.
Could be component of vagal syncope as well. His BP and HR did improve However given the amount of blood and the fact that we have changed his ostomy 3 times will give 2 units stat.
Discharge Plan
Departure
Patient Disposition: Admit
Date of Disposition: 01/12/25
Time of Disposition: 14:06
Presentation/result/management discussed w/ accepting MD/DO: Hospitalist
Discharge Problem:
GI bleed
Interventions
Interventions:
*Risk Screen - Suicide Last Done: 01/12/25 12:01
*General Assessment Last Done: 01/12/25 12:01
*Neglect/Abuse Screening Last Done: 01/12/25 12:01
*ED- Fall Risk Assessment Last Done: 01/12/25 14:15
*ED COVID-19 Vaccine History Last Done: 01/12/25 12:01
*Nursing Disposition Last Done: 01/12/25 15:19
TU-Zhdhfk-Ucshkigdrc Assessment Last Done: 01/12/25 12:27
ED- Cardiac Assessment Last Done: 01/12/25 12:27
ED- Pulmonary Assessment Last Done: 01/12/25 12:27
Discharge Date and Time
Discharge Date/Time: 01/12/25 15:20
[2025-01-12] MEDS: NSS 1000 IV ×2 (12:37→18:32)
[2025-01-12 12:38] LABS: % Basophils 0.6 % (0-2); % Eosinophils 0.3 % (0-6); % Lymphocytes 8.1 % (20.5-51.1); % Monocytes 6.6 % (1.7-9.3); % Neutrophils 83.4 % (42.2-75.2); Absolute Basophils 0.1 10^3/uL (0-0.2); Absolute Eosinophils 0.1 10^3/uL (0-0.7); Absolute Immature Granulocytes 0.2 10^3/uL (0-0.05); Absolute Lymphocytes 1.5 10^3/uL (1.2-3.4); Absolute Monocytes 1.2 10^3/uL (0.1-0.6); Absolute Neutrophils 15.5 10^3/uL (1.4-6.5); Hematocrit 36.2 % (39.0-52.0); Hemoglobin 12.2 g/dL (13.0-18.0); Mean Corp Hgb Conc. 33.7 g/dL (33.0-37.0); Mean Corpuscular Hgb 28.5 pg (27.0-31.0); Mean Corpuscular Volume 84.6 fL (80.0-94.0); Nucleated Red Blood Cells % 0 % (-); Red Blood Cell Count 4.28 10^6/uL (4.70-6.10); Red Cell Dist. Width 12.9 % (11.5-14.5); White Blood Cell Count 18.5 10^3/uL (4.8-10.8)
[2025-01-12 12:44] LABS: Lactic Acid 2.3 mmol/L (0.7-2.0)
[2025-01-12 12:45] LABS: ALT (SGPT) 28 U/L (0-50); AST (SGOT) 27 U/L (17-59); Albumin 4.4 g/dl (3.5-5.0); Alkaline Phosphatase 66 U/L (38-126); Blood Urea Nitrogen 18 mg/dl (9-20); Carbon Dioxide 25 mmol/L (22-30); Chloride 104 mmol/L (98-107); Estimated Creatinine Clearance 70 ml/min; Glucose 153 mg/dl (70-99); Potassium 4.7 mmol/L (3.5-5.1); Sodium 136 mmol/L (135-145); Total Bilirubin 0.5 mg/dl (0.2-1.3); Total Protein 6.7 g/dl (6.3-8.2); eGFR > 60.00
[2025-01-12 12:49] LABS: APTT 25.9 Sec (23.4-35.0); INR 1.07; PT 14.4 Sec (11.4-14.6)
[2025-01-12 13:56] LABS: Mean Platelet Volume 8.9 fL (7.4-10.4); Platelet Count 706 10^3/uL (130-400)
--- NOTE | 2025-01-12 14:01 | CON.CRS ---
Consultation
-
Date/Time Consultation Requested: 01/12/2025, 12:45
Date/Time Consultation Performed: 01/12/2025, 13:30
Requesting Provider: Moraima Bennett PA-C
Performing Provider: Husam Bertrand MD
Reason for Consultation: colostomy hemorrhage
Medical History
-
Chief Complaint: GI bleeding
History of Present Illness:
64-year-old male presents to the emergency department from Dr. Bertrand with colorectal surgery's clinic due to profuse bleeding from his colostomy bag. The patient was seen earlier this morning due to GI bleeding from the ostomy. This started at 10
AM today and he emptied 5 bags worth while in clinic. The bleeding was dark red and clotting in nature. In the clinic he turned pale and was presyncopal which resolved with him lying down. In clinic his vital signs showed a heart rate of the 130s
and BP 120s over 80s. He refused an ambulance and was driven over by his [id number]-au-ejz.
The patient recently underwent an exploratory laparotomy with sigmoidectomy and abdominal washout with creation of end colostomy by Dr. Husam Bertrand due to perforated diverticulitis on 12/29/2024. He was discharged on 01/01/2025 to home. Besides
today's bleeding he had otherwise been doing well.
In the ER his WBC is 18.5. Hemoglobin is 12.2. He remains afebrile. He has been tachycardic between 110s [address] 130s. CT of the abdomen and pelvis shows active GI bleeding in the region of the hepatic flexure posteriorly. Given these findings, we
have been consulted for further surgical opinion.
Past Medical History
Past Medical History: Other (diverticulitis, Anxiety / Insomnia, Peripheral Polyneuropathy, Pulmonary Nodules, AAA)
Past Surgical History: Other (Lipoma Excision, Left Inguinal Hernia Repair, Percutaneous Drain for Diverticular Abscess (2010))
Social History
Tobacco: Other (30 pack years total use.)
Alcohol: None
Drug: None
Family History
Family History: Reviewed & Not Pertinent
Allergies / Home Medications
Allergy/AdvReac Type Severity Reaction Status Date / Time
No Known Allergies Allergy Verified 01/12/25 12:01
�Medication �Instructions �Recorded �Confirmed �Type
bxfjown-xzckhlxqv-uyxu 333 mg-133 1 tab PO DAILY Supplement 09/12/10 01/12/25 History
mg-5 mg tablet
lorazepam 1 mg tablet 1 mg PO DAILY@1400 Mental 09/12/10 01/12/25 History
Health/Anxiety
omega-3 fatty acids-fish oil 340 1 cap PO DAILY Supplement 09/12/10 01/12/25 History
mg-1,000 mg capsule (Fish Oil)
aspirin 81 mg tablet,delayed 81 mg PO DAILY Blood Clot 12/29/24 01/12/25 History
release Prevention/Tx
simvastatin 40 mg tablet (Zocor) 40 mg PO QPM High Cholesterol 12/29/24 01/12/25 History
therapeutic multivitamin 1 tab PO DAILY Supplement 12/29/24 01/12/25 History
varenicline tartrate 0.5 mg (11)-1 0 ea PO PER PKG DIR Smoking 12/29/24 01/12/25 History
mg (42) tablets in a dose pack Cessation
zaleplon 10 mg capsule 10 mg PO HS 12/29/24 01/12/25 History
lorazepam 2 mg tablet 2 mg PO HS Mental Health/Anxiety 12/30/24 01/12/25 History
acetaminophen 325 mg tablet 650 mg (2 x 325 mg) PO Q4HPRN PRN 01/01/25 01/12/25 Rx
Mild Pain / Temp > 101 #100 tabs
oxycodone 5 mg tablet 5 mg PO Q6HPRN PRN SEVERE Pain 01/12/25 01/12/25 History
Review of Systems
-
History Source: Patient
Abdomen/GI: Other (blood in colostomy bag)
A 10 point review of systems was completed, and was negative except as per HPI.
Physical Exam
Vital Signs
Temp 98.5 F 01/12/25 11:59
Pulse 126 01/12/25 13:45
Resp Rate 19 01/12/25 13:45
Blood pressure 111/90 01/12/25 13:45
SaO2 100 01/12/25 12:45
01/11/25 01/12/25 01/13/25
06:59 06:59 06:59
Actual Weight 65.8 kg
Body Mass Index (BMI) 18.6
Lab Results / Allergies
01/12/25 12:19
01/12/25 12:19
WBC 18.5 10^3/uL (4.8-10.8) H 01/12/25 12:19
Hgb 12.2 g/dL (13.0-18.0) L 01/12/25 12:19
Hct 36.2 % (39.0-52.0) L 01/12/25 12:19
Plt Count 706 10^3/uL (130-400) H 01/12/25 12:19
Abs Immat Gran (auto) 0.2 10^3/uL (0-0.05) H 01/12/25 12:19
Neutrophils % 83.4 % (42.2-75.2) H 01/12/25 12:19
Allergy/AdvReac Type Severity Reaction Status Date / Time
No Known Allergies Allergy Verified 01/12/25 12:01
Physical Exam
General: Well Developed, Well Nourished and No Apparent Distress
GI: Soft, Non Tender, Non Distended and Other (colostomy warm and pink with dark blood in bag)
Skin: Warm and Dry
Neuro: AO x 3
Data Reviewed
-
CT Scan: Image Personally Visualized and interpreted, Report Reviewed by me and Discussed with Physician
Labs: Labs Reviewed by me and Discussed with Physician
Old Records: Reviewed
Assessment / Plan
-
Assessment: 64yo male s/p recent ex lap, sigmoidectomy, abdominal washout, creation of end colostomy due to diverticulitis (12/29/2024), presents to [facility] ER from clinic due to profuse dark clotty bleeding from his colostomy bag
Plan:
-IR has been consulted for embolization of hepatic flexure. Discussed with myself, Dr. Bertrand, and Dr. Rodriguez.
-Remain NPO
-Trend labs/vitals
-No plans for OR at this time
--- NOTE | 2025-01-12 14:34 | HPS.HSE ---
Family Physician
-
Family Physician: Ray Pham
Chief Complaint
-
GI Bleed
History of Present Illness
Patient is a 64 y/o male past medical history of anxiety and recent perforated diverticulitis requiring sigmoidectomy with end-colostomy on December 29 who presents with GI bleed. Patient reports this morning at 10:15AM he developed significantly
bleeding filling his colostomy. He reports since that time he has emptied his colostomy bag about 7-8 times. He reports sweats/chills last night. He denies any diarrhea prior to onset of bleeding. He denies nausea or vomiting. He reports some
dizziness/lightheadedness.
Medical History
Past Medical History
Past Medical History: Reports Other
Additional Past Medical History:
Diverticular Disease
Anxiety / Insomnia
Peripheral Polyneuropathy
Pulmonary Nodules
AAA
Past Surgical History: Reports Other
Additional Past Surgical History:
Lipoma Excision
Left Inguinal Hernia Repair
Percutaneous Drain for Diverticular Abscess (2010)
Sigmoidectomy with End-Colostomy (December 2024)
Social History
Tobacco: Smoker (Current some day smoker. Approx 30 pack years total use.)
Alcohol: None
Drug: None
Family History
Family History: Other (Father: Lung Cancer Mother: Breast Cancer)
Allergies / Home Medications
Allergies reflects when Allergies were last updated in [employer].
Home Medications with original date entered in [employer]
Allergy/Medication List:
Allergies
Allergy/AdvReac Type Severity Reaction Status Date / Time
No Known Allergies Allergy Verified 01/12/25 12:01
Home Medications
tuwqemv-ssnfusdvt-ozpi 333 mg-133 mg-5 mg tablet 1 tab PO DAILY Supplement 09/12/10
lorazepam 1 mg tablet 1 mg PO DAILY@1400 Mental Health/Anxiety 09/12/10
omega-3 fatty acids-fish oil 340 mg-1,000 mg capsule (Fish Oil) 1 cap PO DAILY Supplement 09/12/10
aspirin 81 mg tablet,delayed release 81 mg PO DAILY Blood Clot Prevention/Tx 12/29/24
simvastatin 40 mg tablet (Zocor) 40 mg PO QPM High Cholesterol 12/29/24
therapeutic multivitamin 1 tab PO DAILY Supplement 12/29/24
varenicline tartrate 0.5 mg (11)-1 mg (42) tablets in a dose pack 0 ea PO PER PKG DIR Smoking Cessation 12/29/24
zaleplon 10 mg capsule 10 mg PO HS 12/29/24
lorazepam 2 mg tablet 2 mg PO HS Mental Health/Anxiety 12/30/24
acetaminophen 325 mg tablet 650 mg (2 x 325 mg) PO Q4HPRN PRN Mild Pain / Temp > 101 #100 tabs 01/01/25
oxycodone 5 mg tablet 5 mg PO Q6HPRN PRN SEVERE Pain 01/12/25
Review of Systems
-
History Source: Patient
A 12 point ROS was completed and negative except as noted: Yes
Constitutional: Denies Fever or Chills
Respiratory: Denies Cough or Trouble Breathing
Cardiac: Denies Chest Pain or Palpitations
Abdomen/GI: Reports Bloody Stools; Denies Abdominal Pain, Nausea, Vomiting or Diarrhea
: Denies Dysuria or Frequency
Musculoskeletal: Denies Joint Pain or Edema
Neurological: Denies Dizzy or Headache
Physical Exam
Vital Signs
Vital Signs
Temp Pulse Resp BP Pulse Ox
98.5 F 135 17 102/88 100
01/12/25 11:59 01/12/25 14:00 01/12/25 14:00 01/12/25 14:00 01/12/25 12:45
Physical Exam
General: Comfortable, Conversant and Other (Appears very pale)
HEENT: Anicteric and Moist mucous membranes
Respiratory: Clear and Non Labored Respirations
Cardiac: S1/S2, Regular Rhythm and Tachycardia
GI: Soft and Ostomy (Maroon/bloody stool)
Rectal: Deferred by Provider
Musculoskeletal: No Clubbing, No Cyanosis and No Edema
Skin: Warm and Dry
Neuro: Awake, Alert, Oriented and Nonfocal/grossly intact
Psych: Calm
Laboratory Results
-
01/12/25 12:19
Laboratory Results
PT 14.4 Sec (11.4-14.6) 01/12/25 12:19
INR 1.07 01/12/25 12:19
APTT 25.9 Sec (23.4-35.0) 01/12/25 12:19
Lactic Acid 2.3 mmol/L (0.7-2.0) H 01/12/25 12:19
Total Bilirubin 0.5 mg/dl (0.2-1.3) 01/12/25 12:19
AST 27 U/L (17-59) 01/12/25 12:19
ALT 28 U/L (0-50) 01/12/25 12:19
Alkaline Phosphatase 66 U/L (38-126) 01/12/25 12:19
Data Reviewed
-
CT Scan: Report Reviewed by me
Lab Data: Labs Reviewed by me
Old Records: Reviewed
Impression/Plan
-
Hemorrhagic Shock secondary to GI Bleed
-Admit to ICU
-Transfuse 2 units PRBCs Now
-CTA with evidence of active bleeding - IR planning for embolization today
-Continue NPO
-Trend serial Hgb
Enterocolitis by CT scan
-In setting of significant leukocytosis will start empiric Zosyn
-Check blood cultures
Recent Sigmoidectomy with end Colostomy
-Consult Colorectal Surgery
Generalized Anxiety Disorder
-Hold meds in setting of active GI Bleed
DVT proph: SCDs
Code Status: Full Code
--- NOTE | 2025-01-12 14:35 | W.PN.UPDATE ---
Update Note
Progress Note Update
This is an addendum to H&P written by Kami Angel on 01/12/2025. Patient seen and examined independently with PA.
64-year-old male past medical history of recent acute diverticulitis status post perforation and sigmoidectomy and colostomy on 12/29, abdominal aortic aneurysm, hyperlipidemia presenting for significant amount of bloody stool from ostomy this
morning. He was pale looking and tachycardic to 140s with lightheadedness.
Blood pressure initially 120s and tachycardia up to 140s. Labs showed leukocytosis. Lactic acid 2.3.
CT abdomen pelvis showed active bleeding in the region of the hepatic flexure posteriorly. Diffuse enterocolitis. No aortic aneurysm or dissection.
Concern for hemorrhagic shock secondary to colonic bleeding after recent sigmoidectomy/colostomy on 12/29. NPO. IV fluids, 2 units of blood. Check blood cultures. Zosyn. IR to take for embolization. Colorectal surgery consulted.
--- NOTE | 2025-01-12 15:05 | CM ---
CM attempted bedside visit and off unit, reviewed chart
Pt admitted recently to [facility] from 12/29-01/01
On 12/29, pt had sigmoidectomy with new colostomy
He is current with [facility] for [facility]
Pt resides with his SO in a 2SH with 4 ANSHUL through back, 22 steps to 2nd floor
Pt is indep with his ADLs without ADs
PCP- Ray Pham
Rx- [facility]
Discharge Disposition- [facility]
--- NOTE | 2025-01-12 17:11 | CON.INTV ---
Consultation
Consultation Request
Date/Time Consultation Requested: 01/12/2025
Date/Time Consultation Performed: 01/12/2025
Requesting Provider: Kami Suarez
Performing Provider: Hank Sutton
Reason for Consultation: Hypotension
Medical History
-
Chief Complaint: Blood in stool
History of Present Illness:
Patient is a 64-year-old male who was recently admitted to the hospital in December/2024 for perforated diverticulitis requiring sigmoidectomy and end colostomy. Patient was seen in colorectal surgery clinic for follow-up today and was noted to have
bleeding in the colostomy bag. Patient was tachycardic and was near syncopal which improved when he lie down. Subsequently patient was sent to emergency room. Workup in the emergency room included a CT abdomen pelvis which showed active
extravasation around hepatic flexure. Patient also noted to be hypotensive, tachycardiac with ongoing blood loss concerning for hemorrhagic shock. Patient was subsequently taken to IR for attempt for embolization. Colorectal surgery was also
consulted. Patient is being admitted to the ICU postprocedure, project consultant consultation was requested for further input.
Medical History
Past Medical History
Past Medical History: Reports Other
Additional Past Medical History:
Recurrent diverticulitis
Anxiety / Insomnia
Peripheral Polyneuropathy
Pulmonary Nodules
AAA
Past Surgical History: Reports Other
Additional Past Surgical History:
Lipoma Excision
Left Inguinal Hernia Repair
Percutaneous Drain for Diverticular Abscess (2010)
Sigmoidectomy with End-Colostomy (December 2024)
Social History
Tobacco: Smoker (Current some day smoker. Approx 30 pack years total use.)
Alcohol: None
Drug: None
Family History
Family History: Other (Father: Lung Cancer Mother: Breast Cancer)
Allergies / Home Medications
Allergies
Allergy/AdvReac Type Severity Reaction Status Date / Time
No Known Allergies Allergy Verified 01/12/25 12:01
Home Medications
�Medication �Instructions �Recorded �Confirmed �Last Taken �Type
rnnrqnq-gvutudbtn-[id number] 333 mg-133 1 tab PO DAILY Supplement 09/12/10 01/12/25 01/12/25 History
mg-5 mg tablet
lorazepam 1 mg tablet 1 mg PO DAILY@1400 Mental 09/12/10 01/12/25 01/11/25 History
Health/Anxiety
omega-3 fatty acids-fish oil 340 1 cap PO DAILY Supplement 09/12/10 01/12/25 01/12/25 History
mg-1,000 mg capsule (Fish Oil)
aspirin 81 mg tablet,delayed 81 mg PO DAILY Blood Clot 12/29/24 01/12/25 01/12/25 History
release Prevention/Tx
simvastatin 40 mg tablet (Zocor) 40 mg PO QPM High Cholesterol 12/29/24 01/12/25 01/11/25 History
therapeutic multivitamin 1 tab PO DAILY Supplement 12/29/24 01/12/25 01/12/25 History
varenicline tartrate 0.5 mg (11)-1 0 ea PO PER PKG DIR Smoking 12/29/24 01/12/25 01/12/25 History
mg (42) tablets in a dose pack Cessation
zaleplon 10 mg capsule 10 mg PO HS 12/29/24 01/12/25 01/11/25 History
lorazepam 2 mg tablet 2 mg PO HS Mental Health/Anxiety 12/30/24 01/12/25 01/11/25 History
acetaminophen 325 mg tablet 650 mg (2 x 325 mg) PO Q4HPRN PRN 01/01/25 01/12/25 01/10/25 Rx
Mild Pain / Temp > 101 #100 tabs
oxycodone 5 mg tablet 5 mg PO Q6HPRN PRN SEVERE Pain 01/12/25 01/12/25 01/10/25 History
Review of Systems
-
Hematologic/Lymphatic: Other (All 14 systems reviewed and negative except as stated above in the history of present illness.)
Vitals / Labs / Diagnostic Testing
Vital Signs
Temp Pulse Resp BP Pulse Ox
98.4 F 97 15 103/80 100
01/12/25 15:10 01/12/25 15:10 01/12/25 15:10 01/12/25 15:10 01/12/25 15:10
Lab Data
01/12/25 12:19
Laboratory Results
01/12/25
12:19
PT 14.4
INR 1.07
APTT 25.9
Diagnostic Testing:
Physical Exam
-
HEENT: Normocephalic and Other (Pale conjunctiva)
Cardiovascular: S1/S2
Respiratory: Clear
GI: Soft, Non Distended and Non Tender
Neurology: Awake and Alert
Skin: Warm
General: Comfortable
Assessment
-
#1. Acute Lower GI bleed with hemorrhagic shock.
- Responded well to IV fluids and PRBC
- Patient received 2 units of packed RBC stat
- CT scan positive for active GI bleeding in the hepatic flexure region
- IR and colorectal surgery consult, s/p IR guided embolization. No blood noted in the bag during my evaluation in the ICU
- Empirically on Zosyn for suspected enterocolitis, abdomen fairly nontender however. If stays stable over next 24 hours may consider discontinuing antibiotics
- Serial H&H, transfuse as needed
- Continue maintenance IV fluids as ordered
#2. History of smoking, pulmonary nodules
- Outpatient follow-up
#3. History of recurrent diverticulitis
- h/o perforation s/p sigmoidectomy and colostomy in 12/2024
SCDs for DVT prophylaxis
Critical Care time 62 mins -- The patient is admitted for acute critical illness for the treatment of vital organ failure and/or prevention of further life-threatening conditions. Total care includes time spent in review of history, physical exam,
medications, hemodynamic/ventilator parameters, laboratory data, imaging and discussion with house staff, pharmacy, respiratory therapy, student ministry pastor, and nursing.
Data:
CT Abd/Pelvis 12/2024: There is evidence for active GI bleeding in the region of the hepatic flexure posteriorly. Suspect diffuse enterocolitis
LDCT 08/2024: Stable small pulmonary nodules, as above. No new or enlarging pulmonary nodule.
--- NOTE | 2025-01-12 18:35 | PTCARENOTE ---
Pt. arrived to ICU from [facility].
fluids started/labs sent.
Normotensive, mentating approp, no evidence of bleeding at this time.
Quantitative Researcher bedside.
[2025-01-12 18:43] LABS: Hematocrit 30.7 % (39.0-52.0); Hemoglobin 10.5 g/dL (13.0-18.0)
[2025-01-12] MEDS: DILAUDID 0.25 MG IV (19:14)
[2025-01-12] MEDS: ZOSYN 50 IV (19:15)
--- NOTE | 2025-01-12 20:00 | PTCARENOTE ---
On assessment pt AAOx3, denies chest pain and SOB, c/o incision site pain, PRN meds given see CECELIA SR on the monitor, afebrile, SCDs on, RA 98%, L colostomy putting out dark brown stool, NPO, uses urinal, skin intact, family at bedside, call saucedo in
reach
[2025-01-12] MEDS: ATIVAN 1 MG IV (20:14)
[2025-01-12] MEDS: NSS (PRESERVATIVE FREE) 10 ML IV (20:15)
[2025-01-12 21:38] LABS: Hematocrit 29.6 % (39.0-52.0); Hemoglobin 10.6 g/dL (13.0-18.0)
[2025-01-12] MEDS: NSS (PRESERVATIVE FREE) 1 ML IV (22:25)
[2025-01-12] MEDS: ATIVAN 2 MG IV (22:25)
--- NOTE | 2025-01-12 23:44 | PTCARENOTE ---
pt states R groin site 'is doing better', anxious, call saucedo in reach
[2025-01-13] VITALS (26 sets, daily range): BP systolic 98–134; BP diastolic 56–82; BMI 18.4
[2025-01-13] MEDS: DILAUDID 0.25 MG IV ×2 (00:17→04:38)
[2025-01-13] MEDS: NSS 1000 IV (02:02)
[2025-01-13] MEDS: ZOSYN 50 IV ×2 (02:02→07:41)
[2025-01-13 04:05] LABS: Hematocrit 27.2 % (39.0-52.0); Hemoglobin 9.4 g/dL (13.0-18.0); Mean Corp Hgb Conc. 34.6 g/dL (33.0-37.0); Mean Corpuscular Hgb 28.5 pg (27.0-31.0); Mean Corpuscular Volume 82.4 fL (80.0-94.0); Mean Platelet Volume 9.1 fL (7.4-10.4); Platelet Count 365 10^3/uL (130-400); Red Cell Dist. Width 13.7 % (11.5-14.5); White Blood Cell Count 8.9 10^3/uL (4.8-10.8)
[2025-01-13 04:30] LABS: Blood Urea Nitrogen 18 mg/dl (9-20); Calcium 8.7 mg/dl (8.4-10.2); Carbon Dioxide 24 mmol/L (22-30); Chloride 113 mmol/L (98-107); Estimated Creatinine Clearance 64 ml/min; Glucose 84 mg/dl (70-99); Potassium 5.2 mmol/L (3.5-5.1); Sodium 138 mmol/L (135-145); eGFR > 60.00
--- NOTE | 2025-01-13 07:49 | W.PN.HOSP.TC ---
Today's Communication/Plan
-
Diet. Monitor hemoglobin
Assessment / Plan
Assessment / Plan
Physical exam:
General: Acutely ill
HEENT: Normocephalic, Atraumatic and Moist Mucous Membranes
Respiratory: Clear to Auscultation; Negative Wheezes, Rales or Rhonchi
Cardiac: Regular Rhythm and S1/S2
GI: Soft, Nontender and Nondistended. Ostomy in place
Musculoskeletal: No Clubbing, No Cyanosis and No Edema
Neuro: Awake, Alert and Oriented, no gross neurological deficit
Psych: Calm
A/P:
Hemorrhagic Shock secondary to acute lower GI Bleed probably diverticular bleed:
Improved
Status post blood transfusion
Stop IV fluids
Continue to monitor hb
IR attempted embolization
Colorectal surgery consult appreciated
Start diet today
Discussed with son today
From my standpoint can be transferred out of ICU but await for customer development manager input.
Acute blood loss anemia:
Status post blood transfusion
Continue to monitor hemoglobin
Sinus tachycardia:
Reactive due to acute illness
Improving
Leukocytosis:
Likely reactive
No clinical evidence of enterocolitis although described by CT
Stop antibiotics
Blood cultures no growth
Recent Sigmoidectomy with end Colostomy for perforated diverticulitis:
Outpatient follow-up
Underweight:
Encourage nutrition evaluation after acute illness
Generalized Anxiety Disorder:
Can resume his meds later today
Hyperlipidemia:
Can resume medications later today
Polyneuropathy:
Can resume medications later today
Pulmonary nodules:
Outpatient follow-up need
DVT proph:
SCDs
Code Status:
Full Code
Total time spent on today's encounter was 52 minutes which included time spent in counseling the patient/family regarding diagnosis and treatment plan as listed above, goals of care, and symptom management. Case was discussed with nursing staff,
specialists, and care coordinators/case management. All labs and imaging personally reviewed by me. Remainder the time spent in detailed review of previous records, lab data, imaging, and other medical provider documentation.
Anticipated Discharge: Within 24 hours
Subjective/Interval History
-
Date of Service: January 13, 2025
Patient denies any bloody stools today or even since procedure/test last evening. No chest pain or shortness of breath. No lightheadedness
Objective Data
-
Labs:
Laboratory Results
01/12/25 01/13/25 01/13/25
21:29 03:51 03:51
WBC 8.9
Hgb 10.6 L Cancelled 9.4 L
Hct 29.6 L Cancelled
Plt Count
Sodium
Potassium
Chloride
Carbon Dioxide
BUN
Creatinine
Glucose
Calcium
01/13/25
03:51
WBC
Hgb
Hct 27.2 L
Plt Count 365 D
Sodium 138
Potassium 5.2 H
Chloride 113 H
Carbon Dioxide 24
BUN 18
Creatinine 1.1
Glucose 84
Calcium 8.7
Vital Signs:
Vital Signs
Temp Pulse Resp BP Pulse Ox
98.7 F 85 18 109/66 98
01/12/25 23:40 01/13/25 07:45 01/13/25 07:45 01/13/25 07:00 01/13/25 07:45
I&O
01/12/25 01/13/25 01/14/25
06:59 06:59 06:59
Output Total 450 / 450
Balance -450 / -450
--- NOTE | 2025-01-13 07:59 | PTCARENOTE ---
Assumed care at 0700. On assessment pt AAOx3, denies chest pain and SOB, SR on the monitor, afebrile, SCDs on, RA 98%, L colostomy, pink and budded, with dark brown, faint burgundy stool, NPO, uses urinal, skin intact, family at bedside, call saucedo
in reach.
--- NOTE | 2025-01-13 08:52 | VNURNOTE ---
Chart reviewed. Patient is current with [facility] nursing. Will continue to follow hospital course and DC plans.
--- NOTE | 2025-01-13 09:07 | W.PN.CRS1 ---
Today's Communication / Plan
-
- Begin clear liquids and advance as tolerated.
- Monitor hemoglobin.
Assessment/Plan
-
Lower GI bleed with no evidence of active bleeding.
- He remains hemodynamically stable. His tachycardia has resolved.
- I reviewed the possible sources of the bleeding and I suspect a diverticular bleed. Although there is some bowel wall thickening of the small and large intestine, he is having no pain or diarrhea.
- I reviewed the treatment options and the plan is for continued observation.
- He received 2 units of blood on admission and hemoglobin today is stable at 9.4 g/dL.
- Will begin clear liquids and advance as tolerated.
- Will repeat his hemoglobin this afternoon, sooner if there is bleeding.
- Okay for downgrade from the ICU.
Subjective Data
Subjective Data
Date of Service: January 13, 2025
No bleeding since just prior to the mesenteric angiography. At present he has no pain and has been very little output from the ostomy. He has not been having diarrhea. He is hungry.
Objective Data
-
Vital Signs
Temp Pulse Resp BP Pulse Ox
98.2 F 85 18 109/66 98
01/13/25 07:49 01/13/25 07:45 01/13/25 07:45 01/13/25 07:00 01/13/25 07:52
Intake & Output
01/12/25 01/13/25 01/14/25
06:59 06:59 06:59
Output Total 450 / 450 200 / 200
Balance -450 / -450 -200 / -200
Output:
Urine, Voided 450 / 450 200 / 200
Lab Results
01/13/25 03:51
01/13/25 03:51
Physical Exam
-
General: No Acute Distress
Abdomen: Soft, Non Distended, Non Tender and Other (All blood in the ostomy appliance)
Extremities: No Edema and No Calf Tenderness
Data Reviewed
-
Diagnostic Radiology: Image Reviewed
[2025-01-13] MEDS: NSS IV (10:33)
[2025-01-13 13:06] LABS: Hemoglobin 8.7 g/dL (13.0-18.0)
--- NOTE | 2025-01-13 13:26 | CM ---
patient chart reviewed
dx: hemorrhagic shock, GI bleed, enterocolitis
Begin clear liquids and advance as tolerated.
Monitor hemoglobin.
current with [facility] for new ostomy 5/
PLAN: anticipate home with [facility]
--- NOTE | 2025-01-13 13:58 | PTCARENOTE ---
Assessment unchanged. Small amount brown stool in bag with slight tent of burgundy. VSS.
[2025-01-13] MEDS: ATIVAN 1 MG IV (14:29)
--- NOTE | 2025-01-13 16:17 | PTCARENOTE ---
Pt without complaints and no change in stoma output. changed to tele status.
[2025-01-13] MEDS: LIPITOR 20 MG PO (17:01)
--- NOTE | 2025-01-13 17:19 | PTCARENOTE ---
Report given to Acute care nurse. Pt assisted to wheelchair and escorted to [id number].
--- NOTE | 2025-01-13 17:48 | W.PN.INTV ---
Today's Communication / Plan
Recommendations
- Discontinue Zosyn
- Continue serial H&H
- Patient stable to transfer out of ICU, endless bed drum sander service will sign off
- Recommend outpatient follow-up with pulmonary clinic for lung nodules noted on imaging. Information for follow-up left in discharge section
Assessment
-
Patient is a 64-year-old male who was recently admitted to the hospital in December/2024 for perforated diverticulitis requiring sigmoidectomy and end colostomy. Patient was seen in colorectal surgery clinic for follow-up today and was noted to have
bleeding in the colostomy bag. Patient was tachycardic and was near syncopal which improved when he lie down. Subsequently patient was sent to emergency room. Workup in the emergency room included a CT abdomen pelvis which showed active
extravasation around hepatic flexure. Patient also noted to be hypotensive, tachycardiac with ongoing blood loss concerning for hemorrhagic shock. Patient was subsequently taken to IR for attempt for embolization. Colorectal surgery was also
consulted. Patient is being admitted to the ICU postprocedure, endless bed drum sander consultation was requested for further input.
#1. Acute Lower GI bleed with hemorrhagic shock.
- Responded well to IV fluids and PRBC
- Patient received 2 units of packed RBC stat
- CT scan positive for active GI bleeding in the hepatic flexure region
- IR and colorectal surgery consult, s/p attempted IR guided embolization. No further bleeding noted
- Serial H&H, transfuse as needed
- Discontinue Zosyn as less likely infectious etiology.
- Patient can transfer out of ICU
#2. History of smoking, pulmonary nodules
- Outpatient follow-up
- Information for pulmonary follow-up left in the discharge section
#3. History of recurrent diverticulitis
- h/o perforation s/p sigmoidectomy and colostomy in 12/2024
SCDs for DVT prophylaxis
Critical Care time 48 mins -- The patient is admitted for acute critical illness for the treatment of vital organ failure and/or prevention of further life-threatening conditions. Total care includes time spent in review of history, physical exam,
medications, hemodynamic/ventilator parameters, laboratory data, imaging and discussion with house staff, pharmacy, respiratory therapy, inspector general, and nursing.
Data:
CT Abd/Pelvis 12/2024: There is evidence for active GI bleeding in the region of the hepatic flexure posteriorly. Suspect diffuse enterocolitis
LDCT 08/2024: Stable small pulmonary nodules, as above. No new or enlarging pulmonary nodule.
Subjective Dataa
Subjective Data
Date of Service:
Date of Service: January 13, 2025
Subjective:
Patient comfortable sitting in bed in no acute distress. No further bleeding episodes noted.
Review of Systems
Genitourinary: Other (All 14 systems reviewed and negative except as stated above in the history of present illness.)
Objective Data
Data Reviewed
Vital Signs / I&O / Oxygen:
Vital Signs
Temp Pulse Resp BP Pulse Ox
98.0 F 81 18 123/79 98
01/13/25 17:26 01/13/25 17:26 01/13/25 17:26 01/13/25 17:26 01/13/25 17:26
Intake and Output
01/12/25 01/13/25 01/14/25
06:59 06:59 06:59
Intake Total 240 / 240
Output Total 450 / 450 200 / 200
Balance -450 / -450 40 / 40
SaO2 98
Physical Exam
General: Comfortable
HEENT: Normocephalic
Cardiovascular: S1-S2
Respiratory: Clear and Non-Labored Respirations
GI: Soft and Non Distended
Neurology: Awake, Alert and Oriented
Skin: Warm
Labs/Micro/Reports
Lab Data
01/13/25 12:54
01/13/25 03:51
[2025-01-13] MEDS: AMBIEN 5 MG PO (21:38)
[2025-01-13] MEDS: ATIVAN 2 MG PO (21:38)
[2025-01-14 02:59] VITALS: BP 99/58
[2025-01-14 07:30] VITALS: BP 112/76
--- NOTE | 2025-01-14 08:35 | W.PN.HOSP.TC ---
Today's Communication/Plan
-
Discharge planning today
Assessment / Plan
Assessment / Plan
Physical exam:
General: No acute distress
HEENT: Normocephalic, Atraumatic and Moist Mucous Membranes
Respiratory: Clear to Auscultation; Negative Wheezes, Rales or Rhonchi
Cardiac: Regular Rhythm and S1/S2
GI: Soft, Nontender and Nondistended. Ostomy in place
Musculoskeletal: No Clubbing, No Cyanosis and No Edema
Neuro: Awake, Alert and Oriented, no gross neurological deficit
Psych: Calm
A/P:
Hemorrhagic Shock secondary to acute lower GI Bleed probably diverticular bleed:
Improved
Status post blood transfusion
Stop IV fluids
Continue to monitor hb
IR attempted embolization
Colorectal surgery consult appreciated
Start diet today
Discussed with son yesterday
Plan to discharge today
Acute blood loss anemia:
Status post blood transfusion
IV iron infusion x 1
Continue to monitor hemoglobin as outpatient
Sinus tachycardia:
Reactive due to acute illness
Improved
Leukocytosis:
Likely reactive
No clinical evidence of enterocolitis although described by CT
Stop antibiotics
Blood cultures no growth
Recent Sigmoidectomy with end Colostomy for perforated diverticulitis:
Outpatient follow-up
Underweight:
Encourage nutrition evaluation after acute illness
Generalized Anxiety Disorder:
Can resume his meds later today
Hyperlipidemia:
Can resume medications later today
Polyneuropathy:
Can resume medications later today
Pulmonary nodules:
Outpatient follow-up need
DVT proph:
SCDs
Code Status:
Full Code
Anticipated Discharge: Today
Subjective/Interval History
-
Date of Service: January 14, 2025
No new complaints
Objective Data
-
Labs:
Laboratory Results
01/14/25
08:02
WBC Pending
Hgb Pending
Hct Pending
Plt Count Pending
Sodium Pending
Potassium Pending
Chloride Pending
Carbon Dioxide Pending
BUN Pending
Creatinine Pending
Glucose Pending
Calcium Pending
Vital Signs:
Vital Signs
Temp Pulse Resp BP Pulse Ox
98.7 F 83 20 99/58 98
01/14/25 02:59 01/14/25 02:59 01/14/25 02:59 01/14/25 02:59 01/14/25 02:59
I&O
01/13/25 01/14/25 01/15/25
06:59 06:59 06:59
Intake Total 1200 / 1200
Output Total 450 / 450 200 / 200
Balance -450 / -450 1000 / 1000
[2025-01-14 08:43] LABS: Hematocrit 24.9 % (39.0-52.0); Hemoglobin 8.6 g/dL (13.0-18.0); Mean Corp Hgb Conc. 34.5 g/dL (33.0-37.0); Mean Corpuscular Hgb 28.8 pg (27.0-31.0); Mean Corpuscular Volume 83.3 fL (80.0-94.0); Mean Platelet Volume 9.2 fL (7.4-10.4); Platelet Count 383 10^3/uL (130-400); Red Blood Cell Count 2.99 10^6/uL (4.70-6.10); Red Cell Dist. Width 13.6 % (11.5-14.5); White Blood Cell Count 7.4 10^3/uL (4.8-10.8)
--- NOTE | 2025-01-14 09:12 | W.PN.CRS1 ---
Today's Communication / Plan
-
ok for discharge from our perspective
follow up with Dr. Bertrand in a few weeks
Assessment/Plan
-
Lower GI bleed with no evidence of active bleeding.
Hgb 8.7 (8.9), WBC 7.4
- Patient with no further bleeding episodes
- No role for surgery this admission
- ?IV iron while inpatient. Will not start po iron for a few weeks.
- Continue regular diet
- OKay for discharge from our perspective. Follow up with Dr. Bertrand in a few weeks.
Subjective Data
Subjective Data
Date of Service: January 14, 2025
Patient states he feels well. He denies any bleeding. His colostomy has function and there is no further dark stool. He is tolerating a diet. Denies nauesa or vomiting.
Objective Data
-
Vital Signs
Temp Pulse Resp BP Pulse Ox
98.5 F 84 20 112/76 100
01/14/25 07:30 01/14/25 07:30 01/14/25 07:30 01/14/25 07:30 01/14/25 07:30
Intake & Output
01/13/25 01/14/25 01/15/25
06:59 06:59 06:59
Intake Total 1200 / 1200
Output Total 450 / 450 200 / 200
Balance -450 / -450 1000 / 1000
Intake:
Oral fluids 1200 / 1200
Output:
Urine, Voided 450 / 450 200 / 200
Other:
Number of approximated MODERATE 3
amounts of urine
Number of unmeasured liquid
stools
Colostomy 1
Lab Results
01/14/25 08:02
Physical Exam
-
General: No Acute Distress and AOx3
Abdomen: Soft, Non Distended, Non Tender and Other (colostomy warm and pink with brown output)
Skin: Warm and Dry
[2025-01-14 10:12] LABS: Blood Urea Nitrogen 9 mg/dl (9-20); Calcium 9.1 mg/dl (8.4-10.2); Carbon Dioxide 28 mmol/L (22-30); Chloride 109 mmol/L (98-107); Estimated Creatinine Clearance 70 ml/min; Glucose 87 mg/dl (70-99); Potassium 4.1 mmol/L (3.5-5.1); Sodium 140 mmol/L (135-145); eGFR > 60.00
[2025-01-14] MEDS: FERRLECIT 110 MG IV (10:34)
--- NOTE | 2025-01-14 11:03 | W.DCSUMMARY ---
Addendum entered and electronically signed by Otilio Cabral MD 01/15/25 16:26:
Severe protein calorie malnutrition
Original Note:
Discharge Summary
Discharge Data
Date of Admission: 01/12/25
Date of Discharge: 01/14/25
-
Pending Results: No
Hospital Course
Patient is 64 years old male with history of recent perforated diverticulitis requiring sigmoidectomy and end colostomy, neuropathy, anxiety, came into the hospital with bleeding from the colostomy bag and found to be in shock. Patient was admitted
to ICU. CT scan shows evidence of active extravasation around hepatic flexure and he was hypotensive and tachycardic and ongoing blood loss concern for hemorrhagic shock so he was given IV fluids and blood transfusion and IR attempted embolization.
Source of bleeding was not clearly identified but it was felt to be related to diverticular bleed. Colorectal surgery was also consulted. Patient hemoglobin improved. He did not bleed any longer. He was able to tolerate diet without any
problems. He received IV iron infusion x 1 at the request of colorectal surgery. He also was taking aspirin prior to his presentation but there was no compelling evidence to continue with that and colorectal surgery and I recommended not to
continue with aspirin and avoid NSAIDs. Otherwise, patient hemodynamically stable tolerating diet and wants to go home. He will be discharged in stable condition today.
Discharge duration: 35 minutes
Discharge Plan
-
Patient Disposition: Home (Routine Discharge)
Discharge Diagnosis/Procedures: Acute hemorrhagic shock. Acute gastrointestinal bleed likely related to diverticular bleed. Acute blood loss anemia. Iron deficiency anemia.
Diet: Regular
Activity: As tolerated
Blood Work: Please PCP to order CBC, BMP within 1 week
Referrals:
Hank Sutton MD [Active] - in one to two months (Lung nodules )
Ray Pham DO [Family Provider] - in less than 1 week
Husam Bertrand MD [Active] - in two weeks
Prescriptions:
Continued
lorazepam 1 MG tablet
1 mg PO DAILY@1400
aabtpyz-njzehiczj-ekmz 333-133-5 mg Tablet
1 tab PO DAILY
Fish Oil 1,000 MG capsule
1 cap PO DAILY
zaleplon 10 mg Capsule
10 mg PO HS
therapeutic multivitamin Tablet
1 tab PO DAILY
simvastatin [Zocor] 40 mg Tablet
40 mg PO QPM
varenicline tartrate 0.5 mg (11)- 1 mg (42) Tablets,Dose Pack
0 ea PO PER PKG DIR
lorazepam 2 mg Tablet
2 mg PO HS
acetaminophen 325 mg Tablet
650 mg PO Q4HPRN PRN (Reason: Mild Pain / Temp > 101) Qty: 100 0RF
oxycodone 5 mg tablet
5 mg PO Q6HPRN PRN (Reason: SEVERE Pain)
Discontinued
aspirin 81 mg Tablet,Delayed Release (Dr/Ec)
81 mg PO DAILY
Discharge Orders:
Discharge Patient (As Directed); Ordered 01/14/25
Ordered By: Otilio Cabral
Discharge Date and Time
Discharge Date/Time: 01/14/25 13:33
Print Language: LATVIAN
--- NOTE | 2025-01-14 11:16 | CM ---
Chart reviewed and plan is to home with [facility].
Plan; Home with [facility]
--- NOTE | 2025-01-14 11:23 | VNURNOTE ---
[facility] liaison met with patient at bedside. He confirms that he would like to resume [facility] upon DC. He is expecting to have ostomy appliance changed w/WOC nurse prior to DC. Primary nurse aware. Patient aware that [facility] will contact him within 1-2
days after DC. Resumption [facility].
--- NOTE | 2025-01-14 11:47 | WOUNDNOTE ---
[facility] RN note: Instructed patient colostomy appliance change using Holton wafer # [id number], Susan seal and Sahil pouch # [id number]. Patient changed his pouch with few cues needed. Extra appliance given. Angel Luis texted Marycruz Gonsalez asking what the status
is on his home ostomy supply order per patient's request. Patient moves independently. Skin on heels and sacrum intact.
[2025-01-14 12:01] VITALS: BP 145/91
--- NOTE | 2025-01-15 15:07 | PN.CDI ---
CDI
- -
CDI:
Physician Documentation Request
Admit Date: 01/12/25 14:54
Dear Doctor Marianna,
Patient admitted with acute GI bleed.
01/13 PN, 'Pt meets ASPEN/AND criteria for severe protein calorie malnutrition of acute illness with >2% weight loss in 1 week, prolonged poor intake prior to hospital admit</=50% for >1month.
Please provide in your note the diagnosis associated with above findings and your assessment:
Severe protein calorie malnutrition
Moderate protein calorie malnutrition
Other
[place] Criteria ([facility] 2017)
2 or more criteria must be present for either
non severe or severe malnutrition
Note that the criteria differs related to the
presence of an acute or chronic illness
Acute Illness
Energy Intake Non Severe: <75% for >7 days
Severe: <50% for >5 days
Weight Loss Non Severe: 1-2% over 1 week
5% over 1 month
7.5% over 3 months
1 year N/A
Severe: >2% over 1 week
>5% over 1 month
>7.5% over 3 months
1 year N/A
Body Fat Non Severe: Mild Decrease
Severe: Moderate Decrease
Muscle Mass Non Severe: Mild Decrease
Severe: Moderate Decrease
Fluid Accumulation Non Severe: Mild Accumulation
Severe: Moderate to severe
accumulation
Reduced Fare Collector Strength Non Severe: N/A
Severe: Measurably reduced
Use of terms such as suspected, likely, concern for, or probable (associated with a specific diagnosis that is being evaluated, monitored, or treated as if it exists) are acceptable and can be coded in the inpatient setting, when documented at the
time of discharge.
Thank you,
Maureen NOVA, RN,CCDS
CDI Specialist
Available via [place] text
Please use your independent medical judgment in providing your response.
== END 2025-01-14 13:33 | disposition home health service (06) | DRG 377 ==
LOC: 4 WEST ACU 14:54
PROVIDERS: Physician Assistant; Physician Assistant Medical; Radiology Vascular & Interventional Radiology; Surgery; ADMITTING PHYSICIAN Hospitalist; ATTENDING PHYSICIAN Hospitalist; CONSULT PHYSICIAN Surgery; EMERGENCY PHYSICIAN Student in an Organized Health Care Education/Training Program; FAMILY PHYSICIAN Family Medicine; OTHER PHYSICIAN Internal Medicine
PROC: B4101ZZ Fluoroscopy of Abdominal Aorta using Low Osmolar Contrast (ICD-10-PCS; 2025-01-12)
PROC: 30233N1 Transfusion of Nonautologous Red Blood Cells into Peripheral Vein, Percutaneous Approach (ICD-10-PCS; 2025-01-12)
PROC: B4141ZZ Fluoroscopy of Superior Mesenteric Artery using Low Osmolar Contrast (ICD-10-PCS; 2025-01-12)
PROC: 04JY3ZZ Inspection of Lower Artery, Percutaneous Approach (ICD-10-PCS; 2025-01-12)
DX: K57.33 Diverticulitis of large intestine without perforation or abscess with bleeding (principal); R57.8 Other shock; D62 Acute posthemorrhagic anemia; Z68.1 Body mass index [BMI] 19.9 or less, adult; K62.5 Hemorrhage of anus and rectum; I71.40 Abdominal aortic aneurysm, without rupture, unspecified; F41.1 Generalized anxiety disorder; G47.00 Insomnia, unspecified; D72.829 Elevated white blood cell count, unspecified; G62.9 Polyneuropathy, unspecified; D50.9 Iron deficiency anemia, unspecified; R63.6 Underweight; R91.8 Other nonspecific abnormal finding of lung field; E78.00 Pure hypercholesterolemia, unspecified; F17.200 Nicotine dependence, unspecified, uncomplicated; Z87.19 Personal history of other diseases of the digestive system; Z79.82 Long term (current) use of aspirin; Z90.49 Acquired absence of other specified parts of digestive tract; Z80.1 Family history of malignant neoplasm of trachea, bronchus and lung; Z80.3 Family history of malignant neoplasm of breast; Z93.3 Colostomy status
CPT/HCPCS: 36246; 36430; 74174; 75726; 76937; 80048; 80053; 83605; 85014; 85018; 85025; 85027; 85610; 85730; 86850; 86900; 86901; 86920; 87040; 96360; 99152; 99153; 99291; C1769; J2916; P9016; Q9967

== ENCOUNTER 2025-03-16 06:19 | Day surgery (SDC) | payer OTHER, SELFPAY | END 2025-03-16 14:33 | disposition home or self-care (01) | LOC: GI 06:19 | PROVIDERS: ATTENDING PHYSICIAN Surgery | DX: K57.32 Diverticulitis of large intestine without perforation or abscess without bleeding (principal); K62.89 Other specified diseases of anus and rectum; K57.30 Diverticulosis of large intestine without perforation or abscess without bleeding; D12.0 Benign neoplasm of cecum; K62.1 Rectal polyp; K51.40 Inflammatory polyps of colon without complications | CPT/HCPCS: 45385; 45380; 88305 ==

== ENCOUNTER 2025-03-30 06:06 | Inpatient (IN) | payer OTHER, SELFPAY ==
[2025-03-23 09:01] LABS: Hematocrit 41.1 % (39.0-52.0); Hemoglobin 13.7 g/dL (13.0-18.0); Mean Corp Hgb Conc. 33.3 g/dL (33.0-37.0); Mean Corpuscular Volume 84.6 fL (80.0-94.0); Platelet Count 196 10^3/uL (130-400); Red Cell Dist. Width 13.2 % (11.5-14.5)
[2025-03-23 09:16] LABS: APTT 25.0 Sec (23.4-35.0); INR 0.97; PT 13.4 Sec (11.4-14.6)
[2025-03-23 09:39] LABS: ALT (SGPT) 36 U/L (0-50); AST (SGOT) 31 U/L (17-59); Albumin 4.6 g/dl (3.5-5.0); Alkaline Phosphatase 56 U/L (38-126); Blood Urea Nitrogen 17 mg/dl (9-20); Calcium 9.5 mg/dl (8.4-10.2); Carbon Dioxide 30 mmol/L (22-30); Chloride 105 mmol/L (98-107); Glucose 79 mg/dl (70-99); Potassium 4.1 mmol/L (3.5-5.1); Sodium 141 mmol/L (135-145); Total Protein 6.4 g/dl (6.3-8.2); eGFR > 60.00
[2025-03-23 10:16] LABS: Glycohemoglobin (HgbA1c) 4.3 % (4.0-5.6)
[2025-03-23 14:01] VITALS: BMI 19.5
[2025-03-30] VITALS (20 sets, daily range): BP systolic 104–142; BP diastolic 61–108; BMI 19.5
[2025-03-30] MEDS: LYRICA 150 MG PO (07:07)
[2025-03-30] MEDS: CELEBREX 200 MG PO (07:08)
[2025-03-30] MEDS: TYLENOL 1000 MG PO ×2 (07:08→17:36)
[2025-03-30] MEDS: NORMOSOL-R/PLASMALYTE-A 1000 IV ×2 (07:09→15:50)
[2025-03-30] MEDS: HEPARIN 5000 UNITS SC (07:09)
--- NOTE | 2025-03-30 12:55 | W.IMMPOSTOP ---
Addendum entered and electronically signed by Husam Bertrand MD 03/30/25 13:54:
Updated son over the phone
Original Note:
Surgical Immed Post Op Note
-
Primary Surgeon: Husam Bertrand MD
Assisting Surgeon: YOUSIF Gregg
Pre-op Diagnosis: History of colostomy, diverticulitis
Post-op Diagnosis: History of colostomy, diverticulitis
Procedure Performed: Robotic reversal of colostomy, lysis of adhesions, mesenteric angiography with ICG, flexible sigmoidoscopy, laparoscopic TAP block
Anesthesia Type: General
Specimen / Cultures: Colostomy, residual rectosigmoid
Estimated Blood Loss: 50 mL
IVF: 1.3 L
UOP: 200 mL
Complications: None
Operative Findings: Takedown colostomy and resected; placed anvil and insufflated abdomen; plenty of reach from anvil to pelvis; multiple loops of small bowel with adhesions to the pelvis, including adhesions from the appendix into the right side of
the pelvis; lysed with meticulous sharp dissection; identified the rectal stump; passed EEA sizers and only able to pass the small size mobilized the rectum to just above the anterior peritoneal reflection; EEA sizers passed up easily to about 10
cm; transected at this point with the 60 mm blue load robotic stapler; checked perfusion with ICG and proximal distal ends were well-perfused; performed EEA intracorporeal stapled anastomosis; donuts intact, negative leak test, anastomosis intact on
flexible sigmoidoscopy without bleeding; small subserosal hematoma noted on the proximal side of the anastomosis, about 5 mm proximal, so not involving the anastomosis; placed 2 imbricating stitches for hemostasis and gave TXA; performed
laparoscopic TAP block and closed in the usual fashion
--- NOTE | 2025-03-30 13:01 | OR.RPT ---
Operative Report
Operative Report
DATE OF OPERATION: 03/30/2025
SURGEON: Husam Bertrand MD
PREOPERATIVE DIAGNOSIS: History of colostomy, diverticulitis
POSTOPERATIVE DIAGNOSIS: History of colostomy, diverticulitis
OPERATION: Robotic colostomy reversal, lysis of adhesions greater than 45 minutes, mesenteric angiography with ICG, flexible sigmoidoscopy, laparoscopic TAP block
ASSISTANTS:
1. YOUSIF Gregg
ANESTHESIA: General
ESTIMATED BLOOD LOSS: 50 mL
IVF: 1.3 L
URINE OUTPUT: 200 mL
FINDINGS:
1. Significant adhesions from loops of small bowel to pelvis; lysed meticulously without any bowel injury
2. Performed intracorporeal EEA stapled anastomosis from proximal sigmoid to rectum at 10 cm from the anal verge; donuts intact, negative leak test, anastomosis intact on flexible sigmoidoscopy without bleeding
SPECIMENS:
1. Colostomy
2. Residual rectosigmoid colon
DRAINS: None
COMPLICATIONS: No immediate complications.
INDICATIONS: The patient is a 65-year-old male who initially presented to [facility] with perforated diverticulitis requiring Maye's procedure on 12/29/2024. He did well postoperatively and completely recovered. During a postoperative visit,
he had acute onset bleeding from his ostomy and was sent to the [facility] ED. A CTA was done showing a bleed in the hepatic flexure, likely diverticular. He underwent angiography, which ended up being negative. He required 2 PRBCs and was
ultimately discharged. He presented in follow-up for consideration of colostomy reversal. The operation was discussed with the patient in detail, including the risks, benefits and alternatives. Risks described included, but not limited to,
bleeding, infection, anastomotic leak, damage to nearby structures (i.e.- ureter, bowel, solid organs), incisional hernia, need for diverting ostomy creation, conversion to open, recurrent diverticular bleeding, recurrent diverticulitis, and
anesthetic risks. The patient understood and agreed to proceed.
PROCEDURE IN DETAIL: The patient was taken to the operating room and placed on the operating table in supine position. Sequential compression devices were placed bilaterally. General anesthesia was then induced and the patient was intubated without
complication. The patient was placed in lithotomy position with both arms tucked. Urology performed a cystoscopy, placed bilateral ureteral stents, injected each ureter with 2.5mL of ICG and placed a De Guzman. The ostomy site was sutured closed with
2-0 Vicryl. The abdomen was shaved, prepped and draped in a sterile fashion. A time-out was performed verifying the correct patient, procedure, operative site, positioning, and special equipment. Anesthesia placed an orogastric tube. Preoperative
antibiotics were given. A marking pen was used to joe out the midline.
Using electrocautery, the mucocutaneous junction was divided circumferentially around the colostomy. This was taken down to the level of the fascia with meticulous dissection, in order to prevent injury to the colon. Hemostasis was achieved. I
entered the abdominal cavity and cleared the surrounding area of adhesions using a finger sweep. I selected a point 1cm proximal from the colostomy. A window was created in the mesentery at this point and the mesentery was divided using clamps,
Metzenbaum scissors and 0 Vicryl ties. The colon was divided with Bovie electrocautery. The colostomy was passed off as specimen. A clamp was used to ensure adequate diameter of the colon. A 3-0 Prolene was sutured in a pursestring around the
edge of the colon in a running Twila fashion. The anvil was placed and the pursestring was closed around it. The anvil staple line was cleared from any intervening mesentery and fat. The anvil and colon was returned to the abdomen. A small
Pedrito with port cap was placed and a robotic 12 mm port was placed through the port cap. The abdomen was insufflated. The robotic endoscope was advanced and the abdomen was explored.
There were no significant adhesions to the anterior abdominal wall. The region of Garcia's point was clear, so a robotic 8mm port was placed under direct visualization. Three 8mm robotic ports were placed under direct visualization in a diagonal
fashion from Garcia's point to the right lower quadrant, as well as an 8mm assist port in the right lateral mid abdomen, taking care to avoid injury to the right epigastric vessels. The left upper quadrant port was changed to the air seal port. The
patient was placed in steep Trendelenburg and [id number]. The robot was docked from the patient's left side. From the RLQ to Garcia's point, the instruments introduced were the scissors, camera, bipolar grasper and tip-up grasper,
respectively.
The small bowel was retracted out of the pelvis and towards the right upper quadrant. There were substantial adhesions from the small bowel to the pelvis requiring meticulous sharp dissection. There were also adhesions from small bowel to the
appendix, which was itself adherent to the right pelvic sidewall. The adhesions were filmy and I was able to clear these without any injury to the bowel. The appendix was not in the way and was left in its adherent position along the right pelvic
sidewall. The anvil was grasped to check the reach into the pelvis and it was plenty adequate without any need for further mobilization. The left ureter was easily identified using firefly. I identified the rectal stump. I performed flexible
sigmoidoscopy. I passed the lubricated sigmoidoscope transanally and advanced under direct visualization. There was no intervening stool and the mucosa appeared healthy. I removed the sigmoidoscope. I advanced EEA sizers to assess for adequate
diameter mobilization. I was only able to pass the small EEA sizer due to the lack of mobilization of the rectal stump. Therefore, I continued my rectal mobilization.
I grasped the rectal stump staple line and elevated this. I entered the presacral space posteriorly and continued this dissection distally into the pelvis, avoiding injury to the presacral venous plexus as well as hypogastric nerves. I scored the
lateral pararectal peritoneum to the level of the anterior peritoneal reflection bilaterally. I carried my posterior dissection up bilaterally, avoiding injury to the ureters, which were easily identified on firefly. I checked mobilization of the
rectal stump again with EEA sizers and was now easily able to advance the large EEA sizer to about 10 cm. I developed a tunnel at this point in the mesentery and divided the mesorectum with the vessel sealer. I divided the rectum with the blue
load of the 60 mm robotic stapler. The residual rectosigmoid colon was removed through the Pfannenstiel incision and passed off for pathology. Anesthesia injected ICG and there was adequate perfusion to my proximal colon as well as rectal stump.
I checked the reach of the proposed anastomosis once more and it was plenty adequate. The operative field was surveyed and hemostasis was ensured. The EEA stapler was passed transanally to the distal staple line. The pin was extended and was
connected with the anvil. After ensuring there was no twist to the mesentery and there was no tension, the EEA stapler was then closed for 1 minute and then fired. Both donuts were intact. A leak test was performed by filling the pelvis with
saline, occluding the proximal lumen and insufflating with the flexible sigmoidoscope. There was no evidence of leak from the anastomosis. Endoscopically, the anastomosis was intact without evidence of bleeding. The colorectum was desufflated and
the flexible sigmoidoscope removed. On the anterior aspect of the proximal side of the anastomosis, I noticed a small subserosal hematoma, about 1 cm in size, but at least 5 mm away from the anastomosis. This was not expanding. I placed 2
imbricating stitches for hemostasis and gave a dose of TXA.
The robotic instruments were removed and the robot was undocked. Using laparoscopic visualization, a TAP block was performed using a total of 30 mL of 0.25% Marcaine with epinephrine mixed with dexamethasone and injecting in the transverse
abdominis plane bilaterally. The remaining ports were removed under direct visualization and no bleeding was noted. The colostomy site was closed in layers. First, the edges of the anterior fascia were cleaned from the subcutaneous fat. The
peritoneum and posterior sheath was closed with a running 0-Vicryl stitch. The anterior fascia was closed using an 0 Stratafix suture. The incisions were irrigated. The skin opening of the colostomy wound was tightened by running a 2-0 Vicryl
stitch in a deep dermal pursestring fashion. The wound was packed with plain packing soaked in Betadine. The remaining 30 cc of 0.25% Marcaine with epinephrine mixed with dexamethasone were injected around the incisions. The incisions were closed
with running subcuticular 4-0 Monocryl and dressed with Dermabond. The ostomy wound was dressed with gauze and Tegaderm.
At this point, the procedure was complete. The patient was awoken and extubated without complication. The right stent was removed, and the left stent and De Guzman were left in place. All needle, sponge and instrument counts were reported as correct.
The patient tolerated the procedure well and was transferred to the recovery room in stable condition with the de guzman in place.
DICTATED BY: Husam Bertrand MD
[2025-03-30] MEDS: ZOFRAN 4 MG IV (13:09)
[2025-03-30] MEDS: DILAUDID 0.25 MG IV (13:34)
[2025-03-30] MEDS: TORADOL 15 MG IV ×2 (13:59→20:25)
[2025-03-30] MEDS: ATIVAN 1 MG PO ×2 (17:36→21:05)
[2025-03-30] MEDS: LIPITOR 20 MG PO (17:36)
--- NOTE | 2025-03-30 18:37 | PTCARENOTE ---
1430 Pt out from PACU. AOx3. VSS. Mijares w/ stent intact, tea colored urine w/ some bloody tinge. Pt denies pain. L mid ab w/ Betadine soaked gauze and tegaderm intact. 4 lap sites w/ surgiglue and ILIA.
1830 Temp 100.7. Tylenol given [address] Bertrand made aware. No new orders.
[2025-03-30] MEDS: AMBIEN 5 MG PO (21:05)
[2025-03-31] MEDS: TYLENOL 1000 MG PO ×3 (00:30→13:05)
[2025-03-31] MEDS: ZOFRAN 4 MG IV (01:00)
[2025-03-31] MEDS: TORADOL 15 MG IV ×3 (01:01→14:50)
[2025-03-31 03:00] VITALS: BP 115/79
[2025-03-31 06:00] VITALS: BMI 20.1
[2025-03-31] MEDS: ROXICODONE 5 MG PO (06:45)
[2025-03-31] MEDS: RELISTOR 12 MG SC (07:45)
[2025-03-31] MEDS: ATIVAN PO ×2 (07:52→13:03)
[2025-03-31 07:53] LABS: Hematocrit 37.9 % (39.0-52.0); Hemoglobin 12.7 g/dL (13.0-18.0); Mean Corp Hgb Conc. 33.5 g/dL (33.0-37.0); Mean Corpuscular Volume 83.8 fL (80.0-94.0); Nucleated Red Blood Cells % 0 % (-); Platelet Count 202 10^3/uL (130-400); Red Cell Dist. Width 13.1 % (11.5-14.5)
[2025-03-31 08:24] LABS: Blood Urea Nitrogen 17 mg/dl (9-20); Calcium 9.2 mg/dl (8.4-10.2); Carbon Dioxide 27 mmol/L (22-30); Estimated Creatinine Clearance 79 ml/min; Glucose 87 mg/dl (70-99); Magnesium 2.2 mg/dl (1.6-2.3); eGFR > 60.00
[2025-03-31 08:35] LABS: Chloride 106 mmol/L (98-107); Potassium 3.9 mmol/L (3.5-5.1); Sodium 138 mmol/L (135-145)
--- NOTE | 2025-03-31 10:20 | W.PN.CRS1 ---
Today's Communication / Plan
-
regular diet
lovenox
OOB
wound changed
await void
possible d/c later today
Assessment/Plan
-
POD#1 Robotic reversal of colostomy, lysis of adhesions, mesenteric angiography with ICG, flexible sigmoidoscopy, laparoscopic TAP block
WBC: 11.4, Hgb 12.7
vitals normal
-On a regular diet. D/C IVFs when tolerating po intake.
-OOB as tolerated.
-Pain control: tylenol/toradol standing, Dilaudid and roxicodone prn
-Mijares and stent removed this AM, await void
-OR pathology pending
-Lovenox to start tonight for DVT prophylaxis. TEDS/SCDS in place.
-Change abdominal wound daily and PRN. Changed this morning by Dr. Bertrand. Wick removed.
-Possible d/c later today if feeling well and voiding. Discharge instructions discussed with patient including medications, activity levels, and follow up. All questions addressed.
Subjective Data
Procedure
03/30/25- Robotic reversal of colostomy, lysis of adhesions, mesenteric angiography with ICG, flexible sigmoidoscopy, laparoscopic TAP block
Subjective Data
Date of Service: March 31, 2025
Patient states he feels well. He has no nausea or vomiting. He is eating a regular diet. Mijares was removed this morning.
Objective Data
-
Vital Signs
Temp Pulse Resp BP Pulse Ox
98.8 F 74 16 115/79 97
03/31/25 03:00 03/31/25 03:00 03/31/25 03:00 03/31/25 03:00 03/31/25 03:00
Intake & Output
03/30/25 03/31/25 04/01/25
06:59 06:59 06:59
Intake Total 1860 / 1860
Output Total 1900 / 1900
Balance -40 / -40
Intake:
Oral fluids 960 / 960
IV fluids (Total) 900 / 900
Normosol 300 / 300
Output:
Urine, Mijares 1899
Lab Results
03/31/25 07:43
03/31/25 07:43
Physical Exam
-
General: No Acute Distress and AOx3
Abdomen: Soft, Non Distended and Non Tender
Skin: Warm and Dry
Wound: Dressing Changed (wick removed, dressing replaced. no active bleeding. )
Incision: Clear, Dry, Intact
[2025-03-31] MEDS: NORMOSOL-R/PLASMALYTE-A IV (10:34)
--- NOTE | 2025-03-31 11:19 | CM ---
Reviewed the chart notes and spoke with the patient at the bedside. The patient resides with significant other in a three story home with four steps to enter. The patient has had [facility] in the past, but no SNF. Had colostomy supplies in home. The
patient confirmed his pharmacy of choice is [facility]. CM continues to be available to patient/family and is monitoring medical plan for needs at discharge.
Plan: Discharge to home when medically stable. No needs anticipated at this time.
[2025-03-31 11:37] VITALS: BP 124/84
[2025-03-31] MEDS: TORADOL IV (13:39)
[2025-03-31 15:06] VITALS: BP 128/65
== END 2025-03-31 15:18 | disposition home or self-care (01) | DRG 334 ==
LOC: 2 SOUTH 06:06
PROVIDERS: Specialist; ADMITTING PHYSICIAN Surgery; FAMILY PHYSICIAN Family Medicine
PROC: 0T9B80Z Drainage of Bladder with Drainage Device, Via Natural or Artificial Opening Endoscopic (ICD-10-PCS; 2025-03-30)
PROC: 0DBP4ZZ Excision of Rectum, Percutaneous Endoscopic Approach (ICD-10-PCS; 2025-03-30)
PROC: 8E0W4CZ Robotic Assisted Procedure of Trunk Region, Percutaneous Endoscopic Approach (ICD-10-PCS; 2025-03-30)
PROC: 0DJD8ZZ Inspection of Lower Intestinal Tract, Via Natural or Artificial Opening Endoscopic (ICD-10-PCS; 2025-03-30)
PROC: 0DN84ZZ Release Small Intestine, Percutaneous Endoscopic Approach (ICD-10-PCS; 2025-03-30)
PROC: 3E0K8KZ Introduction of Other Diagnostic Substance into Genitourinary Tract, Via Natural or Artificial Opening Endoscopic (ICD-10-PCS; 2025-03-30)
DX: Z43.3 Encounter for attention to colostomy (principal); N40.0 Benign prostatic hyperplasia without lower urinary tract symptoms; K66.0 Peritoneal adhesions (postprocedural) (postinfection); M51.369 Other intervertebral disc degeneration, lumbar region without mention of lumbar back pain or lower extremity pain; M48.061 Spinal stenosis, lumbar region without neurogenic claudication; Z87.19 Personal history of other diseases of the digestive system
CPT/HCPCS: 36415; 71046; 80048; 80053; 83036; 83735; 85025; 85027; 85610; 85730; 86850; 86900; 86901; 88304; 88307; 93005; A4300